=== PATIENT | male | born 1965 | race African-American/Black ===

== ENCOUNTER 2016-04-03 04:45 | Emergency (ER) | payer OTHER ==
[~2016-04-03] VITALS: Ht 175.3 cm; Wt 75.0 kg
[~2016-04-03 04:45] MED LIST: ALBU0.08 NEB; HYDR10TA23 PO; IPRA0.02 NEB; LEVA750T PO; PRED10 PO; VENTAER INH
[2016-04-03 04:53] VITALS: BP 136/85; PULSE 98; RESP 28; TEMP 98.7; O2SAT 93
[2016-04-03 04:55] VITALS: O2SAT 93
[2016-04-03 04:59] VITALS: BP 147/84; PULSE 100; RESP 26; O2SAT 93
[2016-04-03] MEDS ORDERED: methylPREDNISolone SOD SUCC 125 MG/2 ML VIAL IVP ONE (05:00)
[2016-04-03] MEDS ORDERED: SODIUM CHLORIDE 0.9% FLUSH 5 ML FLUSH IVF PRN (05:00)
[2016-04-03] MEDS: RESP: ALBUTEROL 2.5 MG/IPRATROPIUM 0.5 MG NEB (SCH) INH (05:03)
--- NOTE | 2016-04-03 05:05 | PD ---
HPI Chief Complaint: Respiratory Symptoms Time Seen by Provider: 04:47 Travel History International Travel<30 days: No Contact w/Intl Traveler<30days: No Traveled to known affect area: No History of Present Illness HPI The patient is a 50 year old male who presents to the [facility] emergency department with a history of shortness of breath that began yesterday. The patient reports that the shortness of breath became worse today and he unfortunately ran out of his inhaler yesterday. He is currently residing at the [facility] for rehabilitation. The patient reports that he put in a request for his inhaler to be refilled yesterday and was told that it may be available for him today. The patient had onset of wheezing prior to arrival, therefore ambulance services were called. The patient reports that over the last hour he's had a cough productive intermittently of brown sputum. The patient reports that he continues to smoke, however he has decreased his cigarette use down to 8 per day. He denies having any known fevers. The patient reports having chest tightness associated with this. He denies having any chest pain or pressure. The patient denies having any recent neck pain, abdominal pain, vomiting, diarrhea, urinary symptoms, or neurologic symptoms. PFSH Past Medical History Narrative Medical The patient's past medical history is significant for COPD, hypertension, hyperlipidemia, anxiety disorder, prior history of polysubstance abuse. Asthma: Yes Autoimmune Disease: No Blood Disorders: No Anxiety: Yes Heart Rhythm Problems: No Cancer: No Cardiac Catheterization: Yes Cardiovascular Problems: Yes High Cholesterol: Yes Chest Pain: No Congestive Heart Failure: No COPD: Yes Diabetes: No Diminished Hearing: No Endocrine: No Gastrointestinal Disorders: Yes Genitourinary: No Hypertension: No Immune Disorder: No Implanted Vascular Access Dvce: No Musculoskeletal: No Neurologic: No Psychiatric: No Reproductive: No Respiratory: Yes (asthma, copd) Immunizations Current: Yes Myocardial Infarction: Yes Sleep Apnea: Yes Thyroid Disease: No Influenza Vaccination: No PNEUMOCCOCAL Vaccine (Year): 1 Past Surgical History Narrative Surgical The patient's past surgical history is significant for cardiac catheterization with stent placement previously. AICD: No Arteriovenous Shunt: No Coronary Stent: Yes Insulin Pump: No Joint Replacement: No Pacemaker: No Other Surgery: No Social History Alcohol Use: Yes (OCCASIONALLY) Tobacco Use: Yes (8 cigarettes per day) Substance Use: No (he is currently in a rehabilitation program/ smoked drugs) Allergies-Medications (Allergen,Severity, Reaction): Coded Allergies: *MDRO Multi-Drug Resistant Organism (Verified Adverse Reaction, Unknown, Cleared, 04/03/16) MRSA (bronch wash) - 09/2011 MRSA PCR Screen negative 12/02/14 and 12/06/14. Cleared per Infection Control. Reported Meds & Prescriptions Reported Meds & Active Scripts Active Hydralazine (Hydralazine HCl) 10 Mg Tab 10 Mg PO Q6H PRN Prednisone 10 Mg Tab 10 Mg PO DAILY Take 5 pills (50mg) daily for 5 days, then 4 pills (40mg) daily for 5 days, then 3 pills (30mg) daily for 5 days, then 2 pills (20mg) daily for 5 days, then 1 pill (10mg) daily for 5 days. Levaquin (Levofloxacin) 750 Mg Tab 750 Mg PO DAILY Albuterol Neb (Albuterol Sulfate) 2.5 Mg/3 Ml Neb 2.5 Mg NEB Q4-6H While awake Ventolin Hfa 18 GM Inh (Albuterol Sulfate) 90 Mcg/Act Aer 2 Puff INH Q4-6H Ipratropium Neb (Ipratropium Berthold) 0.5 Mg/2.5 Ml Amp 0.5 Mg NEB Q4-6H Albuterol Neb (Albuterol Sulfate) 2.5 Mg/3 Ml Neb 2.5 Mg NEB Q4-6H While awake Ventolin Hfa 18 GM Inh (Albuterol Sulfate) 90 Mcg/Act Aer 2 Puff INH Q4-6H PRN Review of Systems Except as stated in HPI: all other systems reviewed are Neg General / Constitutional: No: Fever Eyes: No: Visual changes HENT: No: Headaches Cardiovascular: Positive: Chest Pain or Discomfort (chest tightness) Respiratory: Positive: Cough, Shortness of Breath Gastrointestinal: No: Abdominal Pain Genitourinary: No: Dysuria Musculoskeletal: No: Pain Skin: No Rash Neurologic: No: Weakness Psychiatric: No: Depression Endocrine: No: Polydipsia Hematologic/Lymphatic: No: Easy Bruising Physical Exam Narrative General: The patient is a well-developed well-nourished male, with conversational dyspnea noted. The patient has a frequent dry sounding cough on examination. Head and Neck exam: Head is normocephalic atraumatic. Eyes: Pupils are equal round and reactive to light. Nose: Midline septum with pink mucous membranes Mouth: Dentition unremarkable. Moist mucus membranes. Posterior oropharynx is not erythematous. No tonsillar hypertrophy. Uvula midline. Airway patent. Neck: No palpable lymphadenopathy. No nuchal rigidity. No thyromegaly. Cardiovascular: Sinus tachycardia in the low 100s without murmurs, gallops, or rubs. No pulse deficit to the extremities. Lungs: Inspiratory and expiratory wheezes are audible in bilateral lung gutierrez. The patient has no accessory muscle use noted. The patient is not tripoding. The patient is not diaphoretic. No paroxysmal abdominal breathing. Abdomen: Soft, without tenderness to palpation in all 4 quadrants of the abdomen. No guarding, rebound, or rigidity. Normal bowel sounds are audible. Extremities: No clubbing, cyanosis, or edema. 2+ pulses in all 4 extremities. No calf tenderness on palpation. Back: No costovertebral angle tenderness to palpation. Neurologic Exam: Grossly nonfocal. Skin Exam: No rash noted. Intact skin that is warm and dry. Data Data Last Documented VS Vital Signs Date Time Temp Pulse Resp B/P Pulse Ox O2 Delivery O2 Flow Rate FiO2 04/03/16 04:59 100 26 147/84 93 Aerosol Mask 6 04/03/16 04:53 98.7 Orders Complete Blood Count With Diff (04/03/16 04:47) Basic Metabolic Panel (Bmp) (04/03/16 04:47) Iv Access Insert/Monitor (04/03/16 04:47) Electrocardiogram (04/03/16 04:47) Ecg Monitoring (04/03/16 04:47) Oximetry (04/03/16 04:47) Oxygen Administration (04/03/16 04:47) Chest, Single Ap (04/03/16 04:47) Sodium Chloride 0.9% Flush (Ns Flush) (04/03/16 05:00) Methylprednisolone So Succ Inj (Solumedr (04/03/16 05:00) Albuterol-Ipratropium Neb (Duoneb Neb) (04/03/16 05:00) Albuterol Hfa Inh (Proair Hfa Inh) (04/03/16 05:30) Labs Laboratory Tests Test 04/03/16 05:00 White Blood Count 5.9 TH/MM3 Red Blood Count 4.70 MIL/MM3 Hemoglobin 14.3 GM/DL Hematocrit 42.3 % Mean Corpuscular Volume 90.0 FL Mean Corpuscular Hemoglobin 30.5 PG Mean Corpuscular Hemoglobin 33.9 % Concent Red Cell Distribution Width 14.1 % Platelet Count 238 TH/MM3 Mean Platelet Volume 7.8 FL Neutrophils (%) (Auto) 54.4 % Lymphocytes (%) (Auto) 33.5 % Monocytes (%) (Auto) 7.6 % Eosinophils (%) (Auto) 3.4 % Basophils (%) (Auto) 1.1 % Neutrophils # (Auto) 3.2 TH/MM3 Lymphocytes # (Auto) 2.0 TH/MM3 Monocytes # (Auto) 0.4 TH/MM3 Eosinophils # (Auto) 0.2 TH/MM3 Basophils # (Auto) 0.1 TH/MM3 CBC Comment DIFF FINAL Differential Comment Sodium Level 142 MEQ/L Potassium Level 3.9 MEQ/L Chloride Level 112 MEQ/L Carbon Dioxide Level 22.7 MEQ/L Anion Gap 7 MEQ/L Blood Urea Nitrogen 11 MG/DL Creatinine 0.99 MG/DL Estimat Glomerular Filtration 97 ML/MIN Rate Random Glucose 93 MG/DL Calcium Level 8.9 MG/DL MDM Medical Decision Making Medical Screen Exam Complete: Yes Emergency Medical Condition: Yes Medical Record Reviewed: Yes Differential Diagnosis COPD exacerbation, versus bronchitis, versus pneumonia Narrative Course During the course of the patients emergency department visit, the patients history, examination, and differential diagnosis were reviewed with the patient. The patient had IV access obtained and blood work sent for analysis. The patient was placed on a warehouse operations associate with oximetry and blood pressure monitoring. An EKG was done on arrival. The patient's EKG shows a sinus tachycardia rate of 107, no acute ST segment changes are noted. The patient was provided DuoNeb 2, Solu-Medrol 125 mg IV. The patients laboratory studies were reviewed and remarkable for a CBC that is unremarkable. Basic metabolic profile is remarkable for chloride of 112. Radiology studies were reviewed and remarkable for a chest x-ray that shows no acute abnormality. The patient on reexamination is feeling improved. The patient was given 2 puffs of the pro-air inhaler. The inhaler was then dispensed to him for use at his rehabilitation facility. The patient will be discharged home with a prescription for Medrol Dosepak taper and doxycycline. The patient is resting comfortably and feels better, is alert and in no distress. The patients results and examination findings were discussed with the patient. The repeat examination is unremarkable and benign. The history, exam, diagnostic testing, and current condition do not suggest any significant pathology to warrant further testing, continued ED treatment, admission, or surgical evaluation at this point. The vital signs have been stable. The patient does not have uncontrollable pain, intractable vomiting, or other significant symptoms. The patient's condition is stable and appropriate for discharge. The patient will pursue further outpatient evaluation with a primary care physician or other designated or consulting physician as indicated in the discharge instructions. The patient expressed understanding and was agreeable with this plan. Diagnosis Primary Impression: COPD exacerbation Additional Impression: Acute bronchitis Qualified Code: J20.9 - Acute bronchitis, unspecified organism Referrals: Primary Care Physician 3 days Patient Instructions: Acute Bronchitis (ED), COPD (Chronic Obstructive Pulmonary Disease) (ED), General Instructions Med/Other Pt SpecificInfo: Prescription(s) given Scripts Methylprednisolone Dosepak (Medrol Dosepak)4 Mg Dspk4 Mg PO DIRECTED #1 DSPK Ref 0 Per Pharmacist direction Prov:Lali Jensen MD 04/03/16 Doxycycline Hyclate 100 Mg Qos696 Mg PO BID #20 CAP Ref 0 Prov:Lali Jensen MD 04/03/16 Albuterol 18 GM Inh (Ventolin Hfa 18 GM Inh)90 Mcg/Act Aer2 Puff INH Q4-6H #1 INHALER Ref 11 Prov:Lali Jensen MD 04/03/16 Disposition: 01 DISCHARGE HOME Condition: Stable Lali Jensen MD Apr 03, 2016 05:05
[2016-04-03 05:10] LABS: AUTOMATED NEUTROPHIL # 3.2 TH/MM3 (1.8-7.7); BASOPHIL # 0.1 TH/MM3 (0-0.2); BASOPHIL % 1.1 % (0.0-2.0); EOSINOPHIL # 0.2 TH/MM3 (0-0.4); EOSINOPHIL % 3.4 % (0.0-4.0); HEMATOCRIT 42.3 % (39.0-51.0); LYMPH % 33.5 % (9.0-44.0); MEAN CORPUSCULAR HEMOGLOBIN 30.5 PG (27.0-34.0); MEAN CORPUSCULAR HGB CONC 33.9 % (32.0-36.0); MONO % 7.6 % (0.0-8.0); NEUT % 54.4 % (16.0-70.0); PLATELET COUNT 238 TH/MM3 (150-450); RED CELL DISTRIBUTION WIDTH 14.1 % (11.6-17.2); WHITE BLOOD COUNT 5.9 TH/MM3 (4.0-11.0)
[2016-04-03 05:22] LABS: HEMO FLAGS DIFF FINAL
[2016-04-03 05:25] LABS: BICARBONATE 22.7 MEQ/L (21.0-32.0); POTASSIUM 3.9 MEQ/L (3.5-5.1)
[2016-04-03] MEDS ORDERED: ALBUTEROL SULFATE 90 MCG/ACT HFA 8 GM INHALER INH ONE (05:30)
--- NOTE | 2016-04-03 06:12 | RADRPT ---
EXAM DATE/TIME: 04/03/2016 05:34 [facility] COMPARISON: No previous studies available for comparison. INDICATIONS : Shortness of breath. MEDICAL HISTORY : Hypertension. Chronic obstructive pulmonary disease. Asthma. SURGICAL HISTORY : None. ENCOUNTER: Initial ACUITY: 1 day PAIN SCORE: 0/10 LOCATION: Bilateral chest FINDINGS: A single view of the chest demonstrates the lungs to be symmetrically aerated without evidence of mas s, infiltrate or effusion. The cardiomediastinal contours are unremarkable. Osseous structures are intact. CONCLUSION: No evidence of acute cardiopulmonary disease. Miguel Mart MD on April 03, 2016 at 6:09 Board Certified Radiologist. This report was verified electronically.
[2016-04-03] MEDS ORDERED: VENTAER INH (06:17)
[2016-04-03] MEDS ORDERED: DOXY100C PO (06:17)
[2016-04-03] MEDS ORDERED: MEDR4PAK PO (06:17)
--- NOTE | 2016-04-03 16:02 | EKG ---
Date Performed: 04/03/2016 Time Performed: 05:01:11 PTAGE: 50 years EKG: SINUS TACHYCARDIA POSSIBLE RIGHT VENTRICULAR CONDUCTION DELAY Compared to prior tracing no significant change ABNORMAL RHYTHM ECG NO PREVIOUS TRACING DOCTOR: Ashwini Feng Interpretating Date/Time 04/03/2016 15:58:19
== END 2016-04-03 06:54 | disposition home or self-care (01) ==
LOC: NEPC 04:45
DX: J44.1 Chronic obstructive pulmonary disease with (acute) exacerbation (principal); J44.0 Chronic obstructive pulmonary disease with (acute) lower respiratory infection; J20.9 Acute bronchitis, unspecified; J45.909 Unspecified asthma, uncomplicated; F17.210 Nicotine dependence, cigarettes, uncomplicated
CPT/HCPCS: 71010; 80048; 85025; 93005; 94640; 94664; 96374; 99284; J2930

== ENCOUNTER 2016-04-09 05:31 | Emergency (ER) | payer OTHER ==
[~2016-04-09 05:31] MED LIST changes: +DOXY100C PO; +MEDR4PAK PO
[2016-04-09 05:34] VITALS: BP 128/80; PULSE 99; RESP 18; TEMP 97.6; O2SAT 98
[2016-04-09] MEDS ORDERED: AZITHROMYCIN INJ 500 MG in SODIUM CHLOR 0.9% 250 ML INJ 250 ML IV ONE (06:15)
[2016-04-09] MEDS ORDERED: cefTRIAXone INJ 1,000 MG in SODIUM CHLORIDE 0.9% INJ 100 ML IV ONE (06:15)
[2016-04-09] MEDS: RESP: ALBUTEROL 2.5 MG/IPRATROPIUM 0.5 MG NEB (SCH) INH (06:23)
[2016-04-09 06:44] VITALS: BP 110/68; PULSE 97; RESP 20; O2SAT 98
--- NOTE | 2016-04-09 06:58 | PD ---
HPI Chief Complaint: Respiratory Symptoms Time Seen by Provider: 05:56 Travel History International Travel<30 days: No Contact w/Intl Traveler<30days: No Traveled to known affect area: No History of Present Illness HPI The patient is a 50 year old male who presents to the [facility] emergency department with a history of shortness of breath that began again this evening prior to arrival. The patient is currently a resident at the [facility] for rehabilitation. The patient experienced a COPD exacerbation and was seen in the emergency department by me on April 03, 2016. He was given prescriptions for his inhaler that he was out of at that time as well as nebulizer solution and antibiotic. He reports that he gave the prescriptions to the [facility] and the turn amended the pharmacy, however the prescriptions were not picked up for him. He reports that he awoke from sound sleep with wheezing and coughing. He reports that his cough is been less productive been previously. The patient was brought in by ambulance services. The patient had IV access obtained prior to arrival was given Solu-Medrol 125 mg IV, albuterol nebulizer treatments 3. The patient on arrival to this facility reports feeling somewhat improved although still slightly wheezy. The patient's O2 saturation on room air is noted to be 96-98%. The patient denies any recent fevers, neck pain, chest pain, abdominal pain, vomiting, diarrhea, urinary symptoms, or neurologic symptoms. PFSH Past Medical History Narrative Medical The patient's past medical history is significant for COPD, hypertension, hyperlipidemia, anxiety disorder, history of prior polysubstance abuse, currently in rehabilitation. Asthma: Yes Autoimmune Disease: No Blood Disorders: No Anxiety: Yes Heart Rhythm Problems: No Cancer: No Cardiac Catheterization: Yes Cardiovascular Problems: Yes High Cholesterol: Yes Chest Pain: No Congestive Heart Failure: No COPD: Yes Diabetes: No Diminished Hearing: No Endocrine: No Gastrointestinal Disorders: Yes Genitourinary: No Hypertension: No Immune Disorder: No Implanted Vascular Access Dvce: No Musculoskeletal: No Neurologic: No Psychiatric: No Reproductive: No Respiratory: Yes (asthma, copd) Immunizations Current: Yes Myocardial Infarction: Yes Sleep Apnea: Yes Thyroid Disease: No PNEUMOCCOCAL Vaccine (Year): 1 Past Surgical History Narrative Surgical The patient's past surgical history is significant for cardiac catheterization with stent placement. AICD: No Arteriovenous Shunt: No Coronary Stent: Yes Insulin Pump: No Joint Replacement: No Pacemaker: No Other Surgery: No Social History Alcohol Use: Yes (OCCASIONALLY) Tobacco Use: Yes (8 cigarettes per day) Substance Use: No (he is currently in a rehabilitation program/ smoked drugs) Allergies-Medications (Allergen,Severity, Reaction): Coded Allergies: *MDRO Multi-Drug Resistant Organism (Verified Adverse Reaction, Unknown, Cleared, 04/03/16) MRSA (bronch wash) - 09/2011 MRSA PCR Screen negative 12/02/14 and 12/06/14. Cleared per Infection Control. Reported Meds & Prescriptions Reported Meds & Active Scripts Active Medrol Dosepak (Methylprednisolone) 4 Mg Dspk 4 Mg PO DIRECTED Per Pharmacist direction Doxycycline Hyclate 100 Mg Cap 100 Mg PO BID Hydralazine (Hydralazine HCl) 10 Mg Tab 10 Mg PO Q6H PRN Prednisone 10 Mg Tab 10 Mg PO DAILY Take 5 pills (50mg) daily for 5 days, then 4 pills (40mg) daily for 5 days, then 3 pills (30mg) daily for 5 days, then 2 pills (20mg) daily for 5 days, then 1 pill (10mg) daily for 5 days. Levaquin (Levofloxacin) 750 Mg Tab 750 Mg PO DAILY Albuterol Neb (Albuterol Sulfate) 2.5 Mg/3 Ml Neb 2.5 Mg NEB Q4-6H While awake Ipratropium Neb (Ipratropium Eldred) 0.5 Mg/2.5 Ml Amp 0.5 Mg NEB Q4-6H Albuterol Neb (Albuterol Sulfate) 2.5 Mg/3 Ml Neb 2.5 Mg NEB Q4-6H While awake Ventolin Hfa 18 GM Inh (Albuterol Sulfate) 90 Mcg/Act Aer 2 Puff INH Q4-6H PRN Review of Systems Except as stated in HPI: all other systems reviewed are Neg General / Constitutional: No: Fever Eyes: No: Visual changes HENT: Positive: Congestion, No: Headaches Cardiovascular: No: Chest Pain or Discomfort Respiratory: Positive: Cough, Shortness of Breath, Wheezing Gastrointestinal: No: Abdominal Pain Genitourinary: No: Dysuria Musculoskeletal: No: Pain Skin: No Rash Neurologic: No: Weakness Psychiatric: No: Depression Endocrine: No: Polydipsia Hematologic/Lymphatic: No: Easy Bruising Physical Exam Narrative General: The patient is a well-developed well-nourished male in no acute distress. Head and Neck exam: Head is normocephalic atraumatic. Eyes: Pupils are equal round and reactive to light. Nose: Midline septum with pink mucous membranes Mouth: Dentition unremarkable. Moist mucus membranes. Posterior oropharynx is not erythematous. No tonsillar hypertrophy. Uvula midline. Airway patent. Neck: No palpable lymphadenopathy. No nuchal rigidity. No thyromegaly. Cardiovascular: No pulse deficit to the extremities. Lungs: Soft expiratory wheezes are audible throughout bilateral lung gutierrez, no rhonchi , no crackles. No conversational dyspnea. No accessory muscle use. Abdomen: Soft, without tenderness to palpation in all 4 quadrants of the abdomen. No guarding, rebound, or rigidity. Normal bowel sounds are audible. Extremities: No clubbing, cyanosis, or edema. 2+ pulses in all 4 extremities. No calf tenderness on palpation. Back: No spinous process tenderness to palpation. No costovertebral angle tenderness to palpation. Neurologic Exam: Grossly nonfocal. Skin Exam: No rash noted. Intact skin that is warm and dry. Data Data Last Documented VS Vital Signs Date Time Temp Pulse Resp B/P Pulse Ox O2 Delivery O2 Flow Rate FiO2 04/09/16 06:44 97 20 110/68 98 Nasal Cannula 2 04/09/16 05:34 97.6 Orders Albuterol-Ipratropium Neb (Duoneb Neb) (04/09/16 06:00) Ceftriaxone Inj (Rocephin Inj) (04/09/16 06:15) Azithromycin Inj (Zithromax Inj) (04/09/16 06:15) MDM Medical Decision Making Medical Screen Exam Complete: Yes Emergency Medical Condition: Yes Medical Record Reviewed: Yes Differential Diagnosis COPD exacerbation related to medication noncompliance, versus COPD exacerbation related to bronchitis, versus COPD exacerbation related to allergy exacerbation Narrative Course During the course of the patients emergency department visit, the patients history, examination, and differential diagnosis were reviewed with the patient. The patient had IV access obtained prior to arrival. The patient was given Rocephin 1 g IV, Zithromax 500 IV. The patient was provided DuoNeb nebs 3. The patients laboratory studies and imaging studies were not repeated at this time as they were recently done in his symptoms are similar. Workup was unremarkable on last evaluation. He did have an EKG done during his evaluation today which shows a sinus tachycardia with a rate of 100, no acute ST segment elevation or depression. The patient will be discharged back to the rehabilitation facility. The patient was encouraged to have his prescriptions picked up from the pharmacy that were previously provided by me. The patient is resting comfortably and feels better, is alert and in no distress. The patients examination findings were discussed with him. The repeat examination is unremarkable and benign. The history, exam, diagnostic testing, and current condition do not suggest any significant pathology to warrant further testing, continued ED treatment, admission, or surgical evaluation at this point. The vital signs have been stable. The patient does not have uncontrollable pain, intractable vomiting, or other significant symptoms. The patient's condition is stable and appropriate for discharge. The patient will pursue further outpatient evaluation with a primary care physician or other designated or consulting physician as indicated in the discharge instructions. The patient expressed understanding and was agreeable with this plan. Diagnosis Primary Impression: COPD exacerbation Additional Impression: Acute bronchitis Qualified Code: J20.9 - Acute bronchitis, unspecified organism Referrals: Primary Care Physician 2 days Patient Instructions: Acute Bronchitis (ED), COPD (Chronic Obstructive Pulmonary Disease) (ED), General Instructions Additional Instructions: Please shipping room supervisor the prescriptions that were previously provided during her last emergency department visit from the pharmacy. Disposition: 01 DISCHARGE HOME Condition: Stable Lali Jensen MD Apr 09, 2016 06:58
[2016-04-09 07:47] VITALS: BP 118/76; TEMP 97.8
--- NOTE | 2016-04-09 17:19 | EKG ---
Date Performed: 04/09/2016 Time Performed: 05:38:50 PTAGE: 50 years EKG: SINUS TACHYCARDIA Since previous tracing, no significant change noted ABNORMAL RHYTHM ECG PREVIOUS TRACING : 04/03/2016 05..11 DOCTOR: Mick Deng Interpretating Date/Time 04/09/2016 17:18:37
== END 2016-04-09 07:47 | disposition home or self-care (01) ==
LOC: NEPC 05:31
DX: J44.1 Chronic obstructive pulmonary disease with (acute) exacerbation (principal); J20.9 Acute bronchitis, unspecified; R00.0 Tachycardia, unspecified; I10 Essential (primary) hypertension; E78.5 Hyperlipidemia, unspecified; J45.909 Unspecified asthma, uncomplicated; E78.00 Pure hypercholesterolemia, unspecified; I25.2 Old myocardial infarction; G47.30 Sleep apnea, unspecified; F17.210 Nicotine dependence, cigarettes, uncomplicated
CPT/HCPCS: 93005; 94640; 94664; 96365; 96367; 99283; J0456; J0696; J7050

== ENCOUNTER 2016-04-14 22:56 | Inpatient (IN) | payer OTHER ==
[2016-04-14 22:58] VITALS: BP 194/96; PULSE 147; RESP 40; TEMP 97.4; O2SAT 89
[2016-04-14] MEDS ORDERED: methylPREDNISolone SOD SUCC 125 MG/2 ML VIAL ONE (23:05)
[2016-04-14 23:10] VITALS: O2SAT 94
[2016-04-14] MEDS ORDERED: SODIUM CHLORIDE 0.9% FLUSH 5 ML FLUSH IVF PRN (23:15)
[2016-04-14] MEDS ORDERED: MAGNESIUM SULFATE 1 GM PREMIX 100 ML IV ONE (23:15)
[2016-04-14] MEDS ORDERED: methylPREDNISolone SOD SUCC 125 MG/2 ML VIAL IV PUSH ONE (23:15)
[2016-04-14] MEDS ORDERED: LORazepam 2 MG/ML VIAL IV PUSH ONE (23:15)
[2016-04-14] MEDS: RESP: ALBUTEROL 2.5 MG/IPRATROPIUM 0.5 MG NEB (SCH) INH (23:32)
--- NOTE | 2016-04-14 23:38 | PD ---
HPI Chief Complaint: Respiratory Distress Time Seen by Provider: 23:01 Travel History International Travel<30 days: No Contact w/Intl Traveler<30days: No Traveled to known affect area: No History of Present Illness HPI The patient is a 51 year old male who presents to the [facility] emergency department with a history of shortness of breath that suddenly began this evening. The patient is unable to provide any significant history on arrival as he is dyspneic and tripoding in obvious respiratory distress on an albuterol nebulizer treatment. According to ambulance services the patient was saturating 88% on room air. The patient was at the [facility] when they picked him up. The patient reports having wheezing, cough productive of white and occasionally brown sputum, and tightness in the center of his chest. The patient en route to this facility was started on albuterol nebulizer treatments and was saturating 94% prior to arrival. On arrival, the patient continues to be on a nebulizer treatment and is saturating 91%. The patient has a history of requiring intubation in the past. The patient denies any history of fever, cough, congestion, neck pain, chest pain, shortness of breath, abdominal pain, vomiting, diarrhea, urinary symptoms, or neurologic symptoms. PFSH Past Medical History Narrative Medical The patient's past medical history is significant for COPD, hypertension, hyperlipidemia, anxiety disorder, prior history of polysubstance abuse, currently in rehabilitation, history of coronary artery disease Asthma: Yes Autoimmune Disease: No Blood Disorders: No Anxiety: Yes Heart Rhythm Problems: No Cancer: No Cardiac Catheterization: Yes Cardiovascular Problems: Yes High Cholesterol: Yes Chest Pain: No Congestive Heart Failure: No COPD: Yes Diabetes: No Diminished Hearing: No Endocrine: No Gastrointestinal Disorders: Yes Genitourinary: No Hypertension: No Immune Disorder: No Implanted Vascular Access Dvce: No Musculoskeletal: No Neurologic: No Psychiatric: No Reproductive: No Respiratory: Yes (COPD) Immunizations Current: Yes Myocardial Infarction: Yes Sleep Apnea: Yes Thyroid Disease: No PNEUMOCCOCAL Vaccine (Year): 1 Past Surgical History Narrative Surgical The patient's past surgical history is significant for cardiac catheterization with stent placement. AICD: No Arteriovenous Shunt: No Coronary Stent: Yes Insulin Pump: No Joint Replacement: No Pacemaker: No Other Surgery: No Social History Alcohol Use: Yes (OCCASIONALLY) Tobacco Use: Yes (8 cigarettes per day) Substance Use: No (he is currently in a rehabilitation program/ smoked drugs) Allergies-Medications (Allergen,Severity, Reaction): Coded Allergies: *MDRO Multi-Drug Resistant Organism (Verified Adverse Reaction, Unknown, Cleared, 04/14/16) MRSA (bronch wash) - 09/2011 MRSA PCR Screen negative 12/02/14 and 12/06/14. Cleared per Infection Control. Reported Meds & Prescriptions Reported Meds & Active Scripts Active Medrol Dosepak (Methylprednisolone) 4 Mg Dspk 4 Mg PO DIRECTED Per Pharmacist direction Doxycycline Hyclate 100 Mg Cap 100 Mg PO BID Hydralazine (Hydralazine HCl) 10 Mg Tab 10 Mg PO Q6H PRN Prednisone 10 Mg Tab 10 Mg PO DAILY Take 5 pills (50mg) daily for 5 days, then 4 pills (40mg) daily for 5 days, then 3 pills (30mg) daily for 5 days, then 2 pills (20mg) daily for 5 days, then 1 pill (10mg) daily for 5 days. Levaquin (Levofloxacin) 750 Mg Tab 750 Mg PO DAILY Albuterol Neb (Albuterol Sulfate) 2.5 Mg/3 Ml Neb 2.5 Mg NEB Q4-6H While awake Ipratropium Neb (Ipratropium [place]) 0.5 Mg/2.5 Ml Amp 0.5 Mg NEB Q4-6H Albuterol Neb (Albuterol Sulfate) 2.5 Mg/3 Ml Neb 2.5 Mg NEB Q4-6H While awake Ventolin Hfa 18 GM Inh (Albuterol Sulfate) 90 Mcg/Act Aer 2 Puff INH Q4-6H PRN Review of Systems Except as stated in HPI: all other systems reviewed are Neg General / Constitutional: No: Fever Eyes: No: Visual changes HENT: No: Headaches Cardiovascular: Positive: Chest Pain or Discomfort (chest tightness), Diaphoresis, Dyspnea on exertion Respiratory: Positive: Cough Gastrointestinal: No: Abdominal Pain Genitourinary: No: Dysuria Musculoskeletal: No: Pain Skin: No Rash Neurologic: No: Weakness Psychiatric: No: Depression Endocrine: No: Polydipsia Hematologic/Lymphatic: No: Easy Bruising Physical Exam Narrative General: The patient is well-developed well-nourished male, in respiratory distress on arrival with tripoding, accessory muscle use, diaphoresis. Head and Neck exam: Head is normocephalic atraumatic. Eyes: Pupils are equal round and reactive to light. Nose: Midline septum with pink mucous membranes Mouth: Dentition unremarkable. Moist mucus membranes. Posterior oropharynx is not erythematous. No tonsillar hypertrophy. Uvula midline. Airway patent. Neck: No palpable lymphadenopathy. No nuchal rigidity. No thyromegaly. Cardiovascular: Sinus tachycardia in the 140s without murmurs, gallops, or rubs. No pulse deficit to the extremities and simultaneous auscultation and palpation of his radial artery. Lungs: The patient has poor air movement bilaterally with expiratory wheezes audible bilaterally with a prolonged expiratory phase of breathing. The patient has accessory muscle use, tripoding, conversational dyspnea noted. Abdomen: Soft, without tenderness to palpation in all 4 quadrants of the abdomen. No guarding, rebound, or rigidity. Normal bowel sounds are audible. Extremities: No clubbing, cyanosis, or edema. 2+ pulses in all 4 extremities. No calf tenderness on palpation. Back: No spinous process tenderness to palpation. No costovertebral angle tenderness to palpation. Neurologic Exam: Grossly nonfocal. Skin Exam: No rash noted. Intact skin that is cool and diaphoretic. Data Data Last Documented VS Vital Signs Date Time Temp Pulse Resp B/P Pulse Ox O2 Delivery O2 Flow Rate FiO2 04/15/16 01:00 115 28 144/84 97 BiPAP 04/14/16 23:50 30 04/14/16 23:06 4 04/14/16 22:58 97.4 Orders Iv Access Insert/Monitor (04/14/16 23:01) Ecg Monitoring (04/14/16 23:01) Oximetry (04/14/16 23:01) Oxygen Administration (04/14/16 23:01) Sodium Chloride 0.9% Flush (Ns Flush) (04/14/16 23:15) Albuterol-Ipratropium Neb (Duoneb Neb) (04/14/16 23:15) Electrocardiogram (04/14/16 23:01) Chest, Single Ap (04/14/16 23:01) Methylprednisolone So Succ Inj (Solumedr (04/14/16 23:05) Complete Blood Count With Diff (04/14/16 23:08) Comprehensive Metabolic Panel (04/14/16 23:08) Creatine Kinase (Cpk) (04/14/16 23:08) Ckmb (Isoenzyme) Profile (04/14/16 23:08) Troponin I (04/14/16 23:08) B-Type Natriuretic Peptide (04/14/16 23:08) Prothrombin Time / Inr (Pt) (04/14/16 23:08) Act Partial Throm Time (Ptt) (04/14/16 23:08) Arterial Blood Gas (Abg) (04/14/16 23:08) Urinalysis - C+S If Indicated (04/14/16 23:08) Drug Screen, Random Urine (04/14/16 23:08) Resp Bipap / Cpap Non Invas Vt (04/14/16 ) Methylprednisolone So Succ Inj (Solumedr (04/14/16 23:15) Magnesium Sulfate 1 Gm Premix (Magnesium (04/14/16 23:15) Lorazepam Inj (Ativan Inj) (04/14/16 23:15) Magnesium (Mg) (04/14/16 23:00) CKMB (04/14/16 23:00) CKMB% (04/14/16 23:00) Admit Order (Ed Use Only) (04/15/16 00:58) Labs Laboratory Tests Test 04/14/16 04/14/16 23:00 23:37 Prothrombin Time 10.5 SEC Prothromb Time International 1.0 RATIO Ratio Activated Partial 29.2 SEC Thromboplast Time White Blood Count 9.9 TH/MM3 Red Blood Count 4.79 MIL/MM3 Hemoglobin 14.9 GM/DL Hematocrit 43.1 % Mean Corpuscular Volume 90.0 FL Mean Corpuscular Hemoglobin 31.1 PG Mean Corpuscular Hemoglobin 34.6 % Concent Red Cell Distribution Width 13.9 % Platelet Count 245 TH/MM3 Mean Platelet Volume 8.1 FL Neutrophils (%) (Auto) 59.5 % Lymphocytes (%) (Auto) 29.4 % Monocytes (%) (Auto) 6.9 % Eosinophils (%) (Auto) 3.7 % Basophils (%) (Auto) 0.5 % Neutrophils # (Auto) 5.9 TH/MM3 Lymphocytes # (Auto) 2.9 TH/MM3 Monocytes # (Auto) 0.7 TH/MM3 Eosinophils # (Auto) 0.4 TH/MM3 Basophils # (Auto) 0.1 TH/MM3 CBC Comment DIFF FINAL Differential Comment Sodium Level 139 MEQ/L Potassium Level 3.8 MEQ/L Chloride Level 105 MEQ/L Carbon Dioxide Level 21.7 MEQ/L Anion Gap 12 MEQ/L Blood Urea Nitrogen 20 MG/DL Creatinine 1.27 MG/DL Estimat Glomerular Filtration 72 ML/MIN Rate Random Glucose 132 MG/DL Calcium Level 8.7 MG/DL Magnesium Level 1.8 MG/DL Total Bilirubin 0.6 MG/DL Aspartate Amino Transf 20 U/L (AST/SGOT) Alanine Aminotransferase 23 U/L (ALT/SGPT) Alkaline Phosphatase 62 U/L Total Creatine Kinase 115 U/L Creatine Kinase MB LESS THAN 0.5 NG/ML Troponin I LESS THAN 0.02 NG/ML B-Type Natriuretic Peptide LESS THAN 2 PG/ML Total Protein 7.5 GM/DL Albumin 3.8 GM/DL Blood Gas Puncture Site RT RADIAL Blood Gas Patient Temperature 98.6 Blood Gas HCO3 21 mmol/L Blood Gas Base Excess -3.8 mmol/L Blood Gas Oxygen Saturation 95 % Arterial Blood pH 7.33 Arterial Blood Partial 41 mmHg Pressure CO2 Arterial Blood Partial 222 mmHG Pressure O2 Arterial Blood Oxygen Content 20.5 Vol % Arterial Blood 2.0 % Carboxyhemoglobin Arterial Blood Methemoglobin 1.8 % Blood Gas Hemoglobin 14.9 G/DL Oxygen Delivery Device BiPAP Blood Gas Ventilator Setting IPAP15/EPAP5 Blood Gas Inspired Oxygen 60 % MDM Medical Decision Making Medical Screen Exam Complete: Yes Emergency Medical Condition: Yes Medical Record Reviewed: Yes Differential Diagnosis COPD exacerbation, versus acute coronary syndrome, versus pneumothorax, versus pneumonia Narrative Course During the course of the patients emergency department visit, the patients history, examination, and differential diagnosis were reviewed with the patient. The patient had IV access obtained and blood work sent for analysis. The patient was placed on a cardiac cath tech with oximetry and blood pressure monitoring. An EKG was done on arrival. The patient's EKG shows a sinus tachycardia, incomplete right bundle branch block, heart rate [address] and T-wave abnormalities The patient was provided DuoNeb nebs 3. The patient did not receive Solu- Medrol prior to arrival, therefore Solu-Medrol 125 mg IV was given 1. The patient was placed on BiPAP which will be weaned as tolerated to maintain his O2 saturations greater than or equal to 92% on room air. The patient was started on magnesium 1 g IV. The patients laboratory studies were reviewed and remarkable for a white count of 9.9, hemoglobin 14.9, platelets 245 with a normal differential. CMP is remarkable for BUN of 20, glucose 132, initial set of cardiac enzymes are negative, BNP less than 2, PT PTT unremarkable. ABG reveals a pH of 7.33, PCO2 41, PO2 [address] on BiPAP 15 over 5, 60%. The patient's FiO2 will be decreased based on these findings. The patient was reexamined and the patient is resting more comfortably. The patient's tachycardia has improved down into the 120s. Radiology studies were reviewed and remarkable for a chest x-ray that shows no acute cardiopulmonary abnormality. The patient meets SIRS criteria with his tachycardia and elevated respiratory rate, however sepsis is not suspected at the patient appears to be having respiratory distress related to his COPD exacerbation. The patient's white count is within normal limits. The patients results were discussed with the patient, including the plan of care. I explained that further testing and/ or monitoring is indicated based on the patients history, examination, and/ or laboratory findings. Therefore, I recommended admission for additional evaluation. The patient expressed understanding and was agreeable with this plan. The patient was admitted to the hospital in guarded condition and [facility] Critical Care Narrative Aggregate critical care time was 34 minutes. Time to perform other separately billable procedures was not included in the critical care time. My time did not include minutes spent treating any other patients simultaneously or on activities that did not directly contribute to the patient's treatment. The services I provided to this patient were to treat and/or prevent clinically significant deterioration that could result in: Respiratory failure, cardiovascular collapse, hypoxic brain injury I provided critical care services requiring my management, as noted below: Chart data review, documentation time, medication orders and management, vital sign assessments/reviewing monitor data, ordering and reviewing lab tests, ordering and interpreting/reviewing x-rays and diagnostic studies, care of the patient and discussion of the patient with the admitting physicians. Sepsis Criteria SIRS Criteria (2 or more): Heart rate over 90, RR > 20 or PaCO2 < 32 Physician Communication Physician Communication The patient's case was discussed with Dr. Alvarez who did agree to admit the patient for further evaluation and treatment at this time. Diagnosis Primary Impression: COPD exacerbation Additional Impression: Acute bronchitis Qualified Code: J20.9 - Acute bronchitis, unspecified organism Admitting Information Admitting Physician Requests: Admit Lali Jensen MD Apr 14, 2016 23:38
[2016-04-14 23:44] LABS: AUTOMATED NEUTROPHIL # 5.9 TH/MM3 (1.8-7.7); BASOPHIL # 0.1 TH/MM3 (0-0.2); BASOPHIL % 0.5 % (0.0-2.0); EOSINOPHIL # 0.4 TH/MM3 (0-0.4); EOSINOPHIL % 3.7 % (0.0-4.0); HEMATOCRIT 43.1 % (39.0-51.0); HEMO FLAGS DIFF FINAL; LYMPH % 29.4 % (9.0-44.0); LYMPHOCYTE # 2.9 TH/MM3 (1.0-4.8); MEAN CORPUSCULAR HEMOGLOBIN 31.1 PG (27.0-34.0); MEAN CORPUSCULAR HGB CONC 34.6 % (32.0-36.0); MONO % 6.9 % (0.0-8.0); NEUT % 59.5 % (16.0-70.0); PLATELET COUNT 245 TH/MM3 (150-450); RED BLOOD COUNT 4.79 MIL/MM3 (4.50-5.90); RED CELL DISTRIBUTION WIDTH 13.9 % (11.6-17.2); WHITE BLOOD COUNT 9.9 TH/MM3 (4.0-11.0)
[2016-04-14 23:48] LABS: BLOOD GAS BASE EXCESS -3.8 mmol/L (-2-2); BLOOD GAS HCO3 21 mmol/L (22-26); BLOOD GAS METHEMOGLOBIN 1.8 % (0-2); BLOOD GAS O2 HGB SATURATION 95 % (90-100); BLOOD GAS OXYGEN CONTENT 20.5 Vol % (12.0-20.0); BLOOD GAS PCO2 41 mmHg (38-42); BLOOD GAS PO2 222 mmHG (61-120); BLOOD GAS TOTAL HGB 14.9 G/DL (12.0-16.0); CRITICAL VALUE NO; DRAW SITE RT RADIAL; FIO2 60 %; NUMBER OF ARTERIAL PUNCTURES 1; OXYGEN DEVICE BiPAP; STAT YES; TEMP CORR TO 98.6; ULNAR PULSE PRESENT; VENT SETTINGS IPAP15/EPAP5
[2016-04-14 23:50] VITALS: O2SAT 98
[2016-04-14 23:58] LABS: APTT (PATIENT) 29.2 SEC (24.3-30.1); PROTHROMBIN TIME - PATIENT 10.5 SEC (9.8-11.6)
[2016-04-15] VITALS (23 sets, daily range): BP systolic 112–172; BP diastolic 66–87; PULSE 59–140; RESP 16–28; TEMP 97.9–98.2; O2SAT 95–100
--- NOTE | 2016-04-15 00:02 | RADRPT ---
EXAM DATE/TIME: 04/14/2016 23:26 [place] COMPARISON: CHEST SINGLE AP, April 03, 2016, 5:34. INDICATIONS : Pt short of breath. MEDICAL HISTORY : Hypertension. Chronic obstructive pulmonary disease. asthma SURGICAL HISTORY : None. ENCOUNTER: Initial ACUITY: 1 day PAIN SCORE: 8/10 LOCATION: Bilateral chest FINDINGS: The exam is limited secondary to motion artifact which limits the interpretation. The cardiac silhoue tte is normal in transverse diameter. The lungs are free of acute parenchymal opacity. No effusions a re identified. CONCLUSION: 1. No acute cardiopulmonary disease. Hong Myers MD on April 15, 2016 at 0:00 Board Certified Radiologist. This report was verified electronically.
[2016-04-15 00:17] LABS: ALKALINE PHOSPHATASE 62 U/L (45-117); ALT (GPT) 23 U/L (12-78); ANION GAP 12 MEQ/L (5-15); AST (GOT) 20 U/L (15-37); BICARBONATE 21.7 MEQ/L (21.0-32.0); BLOOD UREA NITROGEN 20 MG/DL (7-18); CHLORIDE 105 MEQ/L (98-107); CREATINE KINASE 115 U/L (39-308); GLOMERULAR FILTRATION RATE 72 ML/MIN (>89); MAGNESIUM 1.8 MG/DL (1.5-2.5); POTASSIUM 3.8 MEQ/L (3.5-5.1); SODIUM (NA) 139 MEQ/L (136-145); TOTAL BILIRUBIN ADULT 0.6 MG/DL (0.2-1.0)
[2016-04-15 00:29] LABS: CKMB LESS THAN 0.5 NG/ML (0.5-3.6)
[2016-04-15] MEDS ORDERED: SODIUM CHLORIDE 0.9% FLUSH 5 ML FLUSH FLUSH PRN (01:15)
[2016-04-15] MEDS ORDERED: ACETAMINOPHEN 325 MG TAB PO PRN (01:15)
[2016-04-15] MEDS ORDERED: BISACODYL 10 MG SUPP PR PRN (01:15)
[2016-04-15] MEDS ORDERED: ONDANSETRON HCL 4 MG/2 ML VIAL IVP PRN (01:15)
[2016-04-15] MEDS ORDERED: MORPHINE SULFATE 4 MG/ML INJ IV PRN (01:15)
[2016-04-15] MEDS ORDERED: ACETAMINOPHEN/HYDROcodone 325 MG/5 MG TAB PO PRN (01:15)
[2016-04-15] MEDS: LEVOFLOXACIN 750 MG PREMIX INJ 150 ML IV SCH ×2 (02:02→23:29)
--- NOTE | 2016-04-15 02:08 | HHI.HP ---
[facility] Service [facility] Primary Care Physician Mireya Carter MD Admission Diagnosis COPD exacerbation Diagnoses: (1) COPD (chronic obstructive pulmonary disease) Diagnosis: Principal (2) Hypoxia Diagnosis: Principal (3) HTN (hypertension) Diagnosis: Principal (4) Tobacco abuse Diagnosis: Principal Travel History International Travel<30 Days: No Contact w/Intl Traveler <30 Da: No Traveled to Known Affected Are: No History of Present Illness This is a 51-year-old male with a PMH of COPD, HTN, Tobacco Abuse, Anxiety, CAD and H/o Cocaine Abuse who was brought to the ER by EMS secondary to SOB, noted to have hypoxia w/ O2 sat 88%. Multiple ER presentations, admissions and h/o Intubation for same. On arrival, BP 194/96, HR 147, O2 sat 89% on RA, Afebrile. Placed on BiPAP with O2 sat 94% on FiO2 60%. ABG with pH 7.53, PCO2 41, PO2 222 on BiPAP with 60% FiO2. S/p Solu-Medrol and DuoNeb w/ some improvement, weaned down to 35% FIO2. CBC unremarkable. BMP essentially unremarkable except for BUN 20, GFR 72. Troponin negative. Urine Drug Screen pending. CXR with no acute findings. Review of Systems Except as stated in HPI: all other systems reviewed are Neg ROS: 14 point review of systems otherwise negative. Past Family Social History Past Medical History PMH: COPD, HTN, Tobacco Abuse, Anxiety, CAD and H/o Cocaine Abuse Past Surgical History PAST SURGICAL HISTORY: Cardiac Stent Allergies: Coded Allergies: *MDRO Multi-Drug Resistant Organism (Verified Adverse Reaction, Unknown, Cleared, 04/14/16) MRSA (bronch wash) - 09/2011 MRSA PCR Screen negative 12/02/14 and 12/06/14. Cleared per Infection Control. Family History PAST FAMILY HISTORY: Reviewed. No h/o DM or CAD Social History PAST SOCIAL HISTORY: Occasional alcohol. Smokes 1/2ppd. h/o Cocaine Abuse, currently in Rehab. Physical Exam Vital Signs Vital Signs Date Time Temp Pulse Resp B/P Pulse Ox O2 Delivery O2 Flow Rate FiO2 04/14/16 23:50 98 30 04/14/16 23:10 94 60 04/14/16 23:10 94 BiPAP 60 04/14/16 23:06 90 Nasal Cannula 4 04/14/16 23:00 Nasal Cannula 04/14/16 22:58 97.4 147 40 194/96 89 Physical Exam PE: GENERAL: Middle-aged black male in no acute distress. Currently on BiPAP HEENT: PERRLA, EOMI. No scleral icterus or conjunctival pallor. No lid lag or facial droop. CARDIOVASCULAR: Regular rate and rhythm. No obvious murmurs to auscultation. No chest tenderness to palpation. RESPIRATORY: No obvious rhonchi. Occasional expiratory wheezing. Clear to auscultation. Breath sounds equal bilaterally. GASTROINTESTINAL: Abdomen soft, non-tender, nondistended. BS normal. MUSCULOSKELETAL: Extremities without clubbing, cyanosis, or edema. No obvious deformities. NEUROLOGICAL: Awake, alert and oriented x4. No focal neurologic deficits. Moving both upper and lower extremities spontaneously. Laboratory Laboratory Tests Test 04/14/16 04/14/16 23:00 23:37 Prothrombin Time 10.5 Prothromb Time International 1.0 Ratio Activated Partial 29.2 Thromboplast Time White Blood Count 9.9 Red Blood Count 4.79 Hemoglobin 14.9 Hematocrit 43.1 Mean Corpuscular Volume 90.0 Mean Corpuscular Hemoglobin 31.1 Mean Corpuscular Hemoglobin 34.6 Concent Red Cell Distribution Width 13.9 Platelet Count 245 Mean Platelet Volume 8.1 Neutrophils (%) (Auto) 59.5 Lymphocytes (%) (Auto) 29.4 Monocytes (%) (Auto) 6.9 Eosinophils (%) (Auto) 3.7 Basophils (%) (Auto) 0.5 Neutrophils # (Auto) 5.9 Lymphocytes # (Auto) 2.9 Monocytes # (Auto) 0.7 Eosinophils # (Auto) 0.4 Basophils # (Auto) 0.1 CBC Comment DIFF FINAL Differential Comment Sodium Level 139 Potassium Level 3.8 Chloride Level 105 Carbon Dioxide Level 21.7 Anion Gap 12 Blood Urea Nitrogen 20 Creatinine 1.27 Estimat Glomerular Filtration 72 Rate Random Glucose 132 Calcium Level 8.7 Magnesium Level 1.8 Total Bilirubin 0.6 Aspartate Amino Transf 20 (AST/SGOT) Alanine Aminotransferase 23 (ALT/SGPT) Alkaline Phosphatase 62 Total Creatine Kinase 115 Creatine Kinase MB LESS THAN 0.5 Troponin I LESS THAN 0.02 B-Type Natriuretic Peptide LESS THAN 2 Total Protein 7.5 Albumin 3.8 Blood Gas Puncture Site RT RADIAL Blood Gas Patient Temperature 98.6 Blood Gas HCO3 21 Blood Gas Base Excess -3.8 Blood Gas Oxygen Saturation 95 Arterial Blood pH 7.33 Arterial Blood Partial 41 Pressure CO2 Arterial Blood Partial 222 Pressure O2 Arterial Blood Oxygen Content 20.5 Arterial Blood 2.0 Carboxyhemoglobin Arterial Blood Methemoglobin 1.8 Blood Gas Hemoglobin 14.9 Oxygen Delivery Device BiPAP Blood Gas Ventilator Setting IPAP15/EPAP5 Blood Gas Inspired Oxygen 60 Result Diagram: 04/14/16229904/14/162299 Assessment and Plan Problem List: (1) COPD (chronic obstructive pulmonary disease) ICD Code: J44.9 Status: Acute (2) Hypoxia ICD Code: R09.02 Status: Acute (3) HTN (hypertension) ICD Code: I10 Status: Acute (4) Tobacco abuse ICD Code: Z72.0 Status: Chronic Assessment and Plan A/P: 1. COPD: Chronic Respiratory Failure w/ Acute Exacerbation, +respiratory distress and hypoxia requiring BIPAP. Multiple admissions for same. O2 sat initially 88% on RA, 94% on BIPAP w/ FIO2 60%, now weaned to 30% FIO2. CXR w/ no acute findings, images reviewed by me. S/p Solu-Medrol and DuoNeb in ER. Continue w/ Solu-Medrol, DuoNeb q4h and q2h prn, Symbicort, Mucinex, Levaquin for empiric tx of Atypical PNA. Monitor closely. 2. Hypoxia: O2 sat 88% on RA, currently on BIPAP w/ improvement. Continue BIPAP, wean as tolerated. 3. HTN: BP 194/96, HR 147, likely compounded by acute SOB and respiratory distress. Monitor BP, antihypertensives as needed. 4. Tobacco Abuse: Counselled. Ativan prn. 5. DVT Prophylaxis: SCD/Teds. 6. Social work for d/c planning as needed. 7. Case discussed at length w/ ER physician. Physician Certification 2 Midnight Certification Type: Admission for Inpatient Services Order for Inpatient Services The services are ordered in accordance with Medicare regulations or non- Medicare payer requirements, as applicable. In the case of services not specified as inpatient-only, they are appropriately provided as inpatient services in accordance with the 2-midnight benchmark. Estimated LOS (days): 2 days is the estimated time the patient will need to remain in the hospital, assuming treatment plan goals are met and no additional complications. Post-Hospital Plan: Not yet determined Laila Alvarez MD Apr 15, 2016 02:08
[2016-04-15] MEDS: methylPREDNISolone SOD SUCC 40 MG/1 ML VIAL IV PUSH SCH ×4 (06:06→23:29)
[2016-04-15] MEDS: SODIUM CHLORIDE 0.9% FLUSH 5 ML FLUSH FLUSH SCH ×2 (08:04→20:50)
[2016-04-15] MEDS: RESP: ALBUTEROL 2.5 MG/IPRATROPIUM 0.5 MG NEB (SCH) NEB ×4 (08:13→20:11)
--- NOTE | 2016-04-15 09:49 | EKG ---
Date Performed: 04/14/2016 Time Performed: 23:19:36 PTAGE: 51 years EKG: SINUS TACHYCARDIA, POSSIBLE ATRIAL FLUTTER INCOMPLETE RIGHT BUNDLE BRANCH BLOCK ABNORMAL [facility] ECG Compared to prior tracing no significant change PREVIOUS TRACING : 04/09/2016 05.38 DOCTOR: Hong Vázquez Interpretating Date/Time 04/15/2016 09:47:21
[2016-04-15] MEDS: guaiFENesin E.R. 600 MG TAB PO SCH ×2 (09:54→20:50)
[2016-04-15] MEDS: BUDESONIDE-FORMOTEROL 160/4.5 MCG INHALER INH SCH ×2 (13:27→20:50)
[2016-04-16] VITALS (8 sets, daily range): BP systolic 136–154; BP diastolic 78–96; PULSE 90–101; RESP 16–18; TEMP 98.4–98.7; O2SAT 96–100
[2016-04-16] MEDS: RESP: ALBUTEROL 2.5 MG/IPRATROPIUM 0.5 MG NEB (PRN) NEB ×2 (02:44→23:07)
[2016-04-16 03:15] LABS: BLOOD, URINE NEG (NEG); GLUCOSE,URINE NEG (NEG); KETONE, URINE NEG (NEG); NITRITE,URINE NEG (NEG); PH, URINE 6.5 (5.0-8.5); URINE COLOR YELLOW (YELLW/STRAW)
[2016-04-16 03:17] LABS: COMMENT (UR) CULT NOT INDICATED; CULTURE IF INDICATED CULT NOT INDICATED
[2016-04-16 03:23] LABS: AMPHETAMINE, URINE NEG (NEG); BARBITURATES, URINE NEG (NEG); COCAINE, URINE NEG (NEG)
[2016-04-16] MEDS: methylPREDNISolone SOD SUCC 40 MG/1 ML VIAL IV PUSH SCH ×2 (05:50→11:38)
[2016-04-16 05:56] LABS: HEMATOCRIT 38.9 % (39.0-51.0); MEAN CELL VOLUME 89.6 FL (80.0-100.0); MEAN CORPUSCULAR HEMOGLOBIN 30.2 PG (27.0-34.0); MEAN CORPUSCULAR HGB CONC 33.8 % (32.0-36.0); PLATELET COUNT 221 TH/MM3 (150-450); RED BLOOD COUNT 4.35 MIL/MM3 (4.50-5.90); RED CELL DISTRIBUTION WIDTH 13.9 % (11.6-17.2); WHITE BLOOD COUNT 15.7 TH/MM3 (4.0-11.0)
[2016-04-16 06:02] LABS: HEMO FLAGS AUTO DIFF
[2016-04-16 06:19] LABS: ANION GAP 9 MEQ/L (5-15); AST (GOT) 10 U/L (15-37); BICARBONATE 21.4 MEQ/L (21.0-32.0); BLOOD UREA NITROGEN 18 MG/DL (7-18); CHLORIDE 106 MEQ/L (98-107); GLOMERULAR FILTRATION RATE 96 ML/MIN (>89); POTASSIUM 4.5 MEQ/L (3.5-5.1); SODIUM (NA) 136 MEQ/L (136-145)
[2016-04-16 06:22] LABS: ALKALINE PHOSPHATASE 55 U/L (45-117); ALT (GPT) 22 U/L (12-78); TOTAL BILIRUBIN ADULT 0.4 MG/DL (0.2-1.0)
[2016-04-16 06:58] LABS: BANDS 4 % (0-6); NEUTROPHIL # MANUAL DIFF 14.4 TH/MM3 (1.8-7.7); PLATELET ESTIMATE SMEAR NORMAL (NORMAL); PLATELET MORPHOLOGY NORMAL (NORMAL); POLYS (SEG NEUTROPHILS) 88 % (16-70); SCAN/DIFF FINAL DIFF MANUAL; WBC DIFF SAMPLE 100
[2016-04-16] MEDS: RESP: ALBUTEROL 2.5 MG/IPRATROPIUM 0.5 MG NEB (SCH) NEB ×4 (08:27→19:33)
[2016-04-16] MEDS: guaiFENesin E.R. 600 MG TAB PO SCH ×2 (08:47→20:47)
[2016-04-16] MEDS: SODIUM CHLORIDE 0.9% FLUSH 5 ML FLUSH FLUSH SCH ×2 (08:48→20:49)
[2016-04-16] MEDS: BUDESONIDE-FORMOTEROL 160/4.5 MCG INHALER INH SCH ×2 (08:48→20:48)
--- NOTE | 2016-04-16 13:06 | HHI.PR ---
Subjective Remarks Follow-up for shortness of breath Shortness of breath better, still requiring oxygen specially at night, afebrile. No nausea or vomiting. Objective Vitals Vital Signs Date Time Temp Pulse Resp B/P Pulse Ox O2 Delivery O2 Flow Rate FiO2 04/16/16 12:42 98.7 94 18 137/82 97 04/16/16 12:42 94 04/16/16 08:30 98.6 97 18 142/78 97 04/16/16 08:30 98 04/16/16 08:29 96 21 04/16/16 07:45 97 Room Air 04/16/16 04:00 98.4 101 18 154/96 99 04/16/16 04:00 101 04/16/16 00:00 98.5 97 16 136/78 100 04/16/16 00:00 97 04/15/16 20:11 96 04/15/16 20:00 100 04/15/16 20:00 98.2 100 18 155/82 97 04/15/16 20:00 97 Room Air 04/15/16 18:00 94 04/15/16 17:00 96 04/15/16 16:00 97.9 94 16 127/75 96 04/15/16 16:00 97 04/15/16 15:00 104 04/15/16 14:00 96 I/O 04/15/16 04/15/16 04/15/16 04/16/16 04/16/16 04/16/16 07:00 15:00 23:00 07:00 15:00 23:00 Intake Total 540 ml 630 ml Output Total 325 ml 650 ml Balance 215 ml -20 ml Intake Oral 540 ml 480 ml IV Total 150 ml Output Urine Total 325 ml 650 ml # Voids 1 # Bowel Movements 1 Result Diagram: 04/16/16 0500 04/16/16 0500 Objective Remarks GENERAL: Middle-aged black male in no acute distress. Currently on BiPAP HEENT: PERRLA, EOMI. No scleral icterus or conjunctival pallor. No lid lag or facial droop. CARDIOVASCULAR: Regular rate and rhythm. No obvious murmurs to auscultation. No chest tenderness to palpation. RESPIRATORY: No obvious rhonchi. Decreased breath sounds, no wheezing GASTROINTESTINAL: Abdomen soft, non-tender, nondistended. BS normal. MUSCULOSKELETAL: Extremities without clubbing, cyanosis, or edema. No obvious deformities. NEUROLOGICAL: Awake, alert and oriented x4. No focal neurologic deficits. Moving both upper and lower extremities spontaneously. A/P Problem List: (1) COPD (chronic obstructive pulmonary disease) ICD Code: J44.9 Status: Acute (2) Hypoxia ICD Code: R09.02 Status: Acute (3) HTN (hypertension) ICD Code: I10 Status: Acute (4) Tobacco abuse ICD Code: Z72.0 Status: Chronic Assessment and Plan 1. COPD: Chronic Respiratory Failure w/ Acute Exacerbation, +respiratory distress and hypoxia requiring BIPAP. Multiple admissions for same. O2 sat initially 88% on RA, 94% on BIPAP w/ FIO2 60%, now weaned to 30% FIO2. CXR w/ no acute findings, images reviewed by me. S/p Solu-Medrol and [place] in ER. Wean from Solu-Medrol, switched to prednisone today, continue Symbicort, Levaquin. Respiratory walk fit test, might need oxygen. Sputum culture grew normal justin 2. Hypoxia: O2 sat 88% on RA, currently on BIPAP w/ improvement. Continue BIPAP, wean as tolerated. 3. HTN: BP 194/96, HR 147, likely compounded by acute SOB and respiratory distress. Monitor BP, antihypertensives as needed. 4. Tobacco Abuse: Counselled. Ativan prn. 5. DVT Prophylaxis: SCD/Teds. Consult social media content specialist. Discharge Planning Possible discharge tomorrow Yadiel Bañuelos MD Apr 16, 2016 13:06
[2016-04-16] MEDS ORDERED: OXYGENTANK NAS.CANULA (13:09)
[2016-04-16] MEDS: predniSONE 20 MG TAB PO SCH (20:47)
[2016-04-17] VITALS (11 sets, daily range): BP systolic 95–149; BP diastolic 70–90; PULSE 79–104; RESP 14–18; TEMP 97.8–98.8; O2SAT 95–97
[2016-04-17] MEDS: RESP: ALBUTEROL 2.5 MG/IPRATROPIUM 0.5 MG NEB (SCH) NEB ×2 (08:02→11:21)
[2016-04-17] MEDS ORDERED: LEVOFLOXACIN 750 MG TAB PO SCH (09:00)
[2016-04-17] MEDS: predniSONE 20 MG TAB PO SCH (09:48)
[2016-04-17] MEDS: BUDESONIDE-FORMOTEROL 160/4.5 MCG INHALER INH SCH (09:49)
[2016-04-17] MEDS: guaiFENesin E.R. 600 MG TAB PO SCH (09:49)
[2016-04-17] MEDS: SODIUM CHLORIDE 0.9% FLUSH 5 ML FLUSH FLUSH SCH (09:49)
[2016-04-17] MEDS ORDERED: PRED10 PO (11:08)
[2016-04-17] MEDS ORDERED: IPRASOL NEB (11:08)
[2016-04-17] MEDS ORDERED: MUCI600T PO (11:08)
[2016-04-17] MEDS ORDERED: SYMB160A INH (11:08)
[2016-04-17] MEDS ORDERED: LEVA750T PO (11:08)
--- NOTE | 2016-04-17 14:32 | HHI.DS ---
Discharge Summary Admission Date Apr 15, 2016 at 01:01 Discharge Date: Apr 17, 2016 Admitting Diagnosis COPD exacerbation (1) COPD (chronic obstructive pulmonary disease) ICD Code: J44.9 Diagnosis: Principal (2) Hypoxia ICD Code: R09.02 Diagnosis: Secondary (3) HTN (hypertension) ICD Code: I10 Diagnosis: Secondary (4) Tobacco abuse ICD Code: Z72.0 Diagnosis: Secondary Procedures none Brief History - From Admission This is a 51-year-old male with a PMH of COPD, HTN, Tobacco Abuse, Anxiety, CAD and H/o Cocaine Abuse who was brought to the ER by EMS secondary to SOB, noted to have hypoxia w/ O2 sat 88%. Multiple ER presentations, admissions and h/o Intubation for same. On arrival, BP 194/96, HR 147, O2 sat 89% on RA, Afebrile. Placed on BiPAP with O2 sat 94% on FiO2 60%. ABG with pH 7.53, PCO2 41, PO2 222 on BiPAP with 60% FiO2. S/p Solu-Medrol and DuoNeb w/ some improvement, weaned down to 35% FIO2. CBC unremarkable. BMP essentially unremarkable except for BUN 20, GFR 72. Troponin negative. Urine Drug Screen pending. CXR with no acute findings. CBC/BMP: 04/16/16 0500 04/16/16 0500 Significant Findings Laboratory Tests Test 04/14/16 04/14/16 04/16/16 23:00 23:37 05:00 Blood Urea Nitrogen 20 MG/DL (7-18) Estimat Glomerular Filtration 72 ML/MIN (>89) Rate Random Glucose 132 MG/DL 130 MG/DL (74-106) (74-106) Creatine Kinase MB LESS THAN 0.5 NG/ML (0.5-3.6) Troponin I LESS THAN 0.02 NG/ML (0.02-0.05) Blood Gas HCO3 21 mmol/L (22-26) Blood Gas Base Excess -3.8 mmol/L (-2-2) Arterial Blood pH 7.33 (7.380-7.420) Arterial Blood Partial 222 mmHG Pressure O2 (61-120) Arterial Blood Oxygen Content 20.5 Vol % (12.0-20.0) White Blood Count 15.7 TH/MM3 (4.0-11.0) Red Blood Count 4.35 MIL/MM3 (4.50-5.90) Hematocrit 38.9 % (39.0-51.0) Neutrophils % (Manual) 88 % (16-70) Lymphocytes % 6 % (9-44) Neutrophils # (Manual) 14.4 TH/MM3 (1.8-7.7) Aspartate Amino Transf 10 U/L (15-37) (AST/SGOT) PE at Discharge GENERAL: Middle-aged black male in no acute distress. Currently on BiPAP HEENT: PERRLA, EOMI. No scleral icterus or conjunctival pallor. No lid lag or facial droop. CARDIOVASCULAR: Regular rate and rhythm. No obvious murmurs to auscultation. No chest tenderness to palpation. RESPIRATORY: No obvious rhonchi. Decreased breath sounds, no wheezing GASTROINTESTINAL: Abdomen soft, non-tender, nondistended. BS normal. MUSCULOSKELETAL: Extremities without clubbing, cyanosis, or edema. No obvious deformities. NEUROLOGICAL: Awake, alert and oriented x4. No focal neurologic deficits. Moving both upper and lower extremities spontaneously. Hospital Course This is a 51-year-old male with a PMH of COPD, HTN, Tobacco Abuse, Anxiety, CAD and H/o Cocaine Abuse who was brought to the ER by EMS secondary to SOB, noted to have hypoxia w/ O2 sat 88%. Patient was initially placed on BiPAP for COPD exacerbation. Chest x-ray was unremarkable. Patient was started on Solu- Medrol and DuoNeb's. After several days, the patient was weaned from Solu- Medrol and switch to prednisone. He will continue Symbicort and finish his course of Levaquin. Culture grew normal justin. He tolerated switch to prednisone. Patient will be discharged home to follow-up with his primary care physician. Pt Condition on Discharge: Good Discharge Disposition: Discharge Home Discharge Time: > 30 minutes Discharge Instructions DIET: Follow Instructions for: Heart Healthy Diet Activities you can perform: Regular-No Restrictions New Medications: Oxygen tank (Oxygen tank) 1 Ea [facility] O[facility] Concentrator Portable Gaseous 2 L/min via Nasal Cannula Continuous For 99 months HYPOXEMIA PREVENTION #1 CYLINDER Prednisone (Prednisone) 10 Mg Tab 10 MG PO DAILY 3 tabs BIDx3d,then 4 tabs ODx3 days,3 tabs ODx3 days,2 tabs OD x 3 days,1 tab OD x 3d, then 1/2 tab x5d then stop. COPD #60 Ref 0 TAB Budesonide-Formoterol Inh (Symbicort Inh) 160-4.5 Mcg/Act Aero 2 PUFF INH Q12HR COPD #1 INHALER Guaifenesin ER 12 HR (Mucinex ER 12 HR) 600 Mg Regina 600 MG PO BID Cough #14 TAB Ipratropium-Albuterol Neb (Duoneb) 0.5-2.5 Mg/3 Ml Neb 1 AMPULE NEB Q4HR WHILE AWAKE NEB copd #1 BOX Levofloxacin (Levaquin) 750 Mg Tab 750 MG PO DAILY COPD #5 TAB Continued Medications: Albuterol 18 GM Inh (Ventolin Hfa 18 GM Inh) 90 Mcg/Act Aer 2 PUFF INH Q4-6H PRN SHORTNESS OF BREATH #1 Ref 0 INHALER Hydralazine (Hydralazine) 10 Mg Tab 10 MG PO Q6H PRN SBP>160, DBP>90 #120 Ref 11 TAB Discontinued Medications: Albuterol Neb (Albuterol Neb) 2.5 Mg/3 Ml Neb 2.5 MG NEB Q4-6H While awake Breathing Treatment #60 Ref 0 NEBULE Albuterol Neb (Albuterol Neb) 2.5 Mg/3 Ml Neb 2.5 MG NEB Q4-6H While awake Breathing Treatment #120 Ref 11 NEBULE Doxycycline Hyclate (Doxycycline Hyclate) 100 Mg Cap 100 MG PO BID Infection #20 Ref 0 CAP Ipratropium Neb (Ipratropium Neb) 0.5 Mg/2.5 Ml Amp 0.5 MG NEB Q4-6H SHORTNESS OF BREATH #120 Ref 11 NEBULE Levofloxacin (Levaquin) 750 Mg Tab 750 MG PO DAILY #6 Ref 0 TAB Methylprednisolone Dosepak (Medrol Dosepak) 4 Mg Dspk 4 MG PO DIRECTED Per Pharmacist direction #1 Ref 0 DSPK Prednisone (Prednisone) 10 Mg Tab 10 MG PO DAILY Take 5 pills (50mg) daily for 5 days, then 4 pills (40mg) daily for 5 days, then 3 pills (30mg) daily for 5 days, then 2 pills (20mg) daily for 5 days, then 1 pill (10mg) daily for 5 days. #75 Ref 0 TAB EddaYadiel MD Apr 17, 2016 14:32 for 5 days, then 3 pills (30mg) daily for 5 days, then 2 pills (20mg) daily for 5 days, then 1 pill (10mg) daily for 5 days. #75 Ref 0 TAB EddaYadiel MD Apr 17, 2016 14:32
== END 2016-04-17 12:10 | disposition home or self-care (01) | DRG 189 ==
LOC: NEPE 22:56 → NEDA 04-15 01:01 → NEDH 04-15 05:27 → HCIS 04-15 08:55
PROVIDERS: ADMIT Hospitalist; ATTEND Hospitalist
PROC: 5A09457 Assistance with Respiratory Ventilation, 24-96 Consecutive Hours, Continuous Positive Airway Pressure (ICD-10-PCS; principal; 2016-04-14)
DX: J96.21 Acute and chronic respiratory failure with hypoxia (principal); J44.1 Chronic obstructive pulmonary disease with (acute) exacerbation; I10 Essential (primary) hypertension; I25.10 Atherosclerotic heart disease of native coronary artery without angina pectoris; E78.5 Hyperlipidemia, unspecified; F41.9 Anxiety disorder, unspecified; J45.909 Unspecified asthma, uncomplicated; E78.00 Pure hypercholesterolemia, unspecified; I25.2 Old myocardial infarction; G47.30 Sleep apnea, unspecified; F17.210 Nicotine dependence, cigarettes, uncomplicated; Z95.5 Presence of coronary angioplasty implant and graft
CPT/HCPCS: 36600; 71010; 80053; 80307; 81001; 82550; 82552; 82805; 83735; 83880; 84484; 85007; 85025; 85027; 85610; 85730; 87070; 87205; 93005; 94002; 94003; 94620; 94640; 94664; 96374; 96375; J1956; J2060; J2920; J2930; J3475; J7512

== ENCOUNTER 2016-05-07 19:32 | Emergency (ER) | payer OTHER ==
[~2016-05-07] VITALS: Ht 175.3 cm; Wt 82.0 kg
[~2016-05-07 19:32] MED LIST changes: -ALBU0.08 NEB; -DOXY100C PO; -IPRA0.02 NEB; +IPRASOL NEB; -MEDR4PAK PO; +MUCI600T PO; +OXYGENTANK NAS.CANULA; +SYMB160A INH
[2016-05-07 19:38] VITALS: BP 134/80; PULSE 99; RESP 20; TEMP 97.8; O2SAT 95
[2016-05-07 19:45] VITALS: BP 134/80; PULSE 99; RESP 20; TEMP 97.8; O2SAT 95
[2016-05-07] MEDS ORDERED: SODIUM CHLOR 0.9% 1000 ML INJ 1,000 ML IV SCH (19:50)
--- NOTE | 2016-05-07 19:55 | PD ---
Physical Exam Date Seen by Provider: May 07, 2016 Data Data Last Documented VS Vital Signs Date Time Temp Pulse Resp B/P Pulse Ox O2 Delivery O2 Flow Rate FiO2 05/07/16 19:45 97.8 99 20 134/80 95 Orders Complete Blood Count With Diff (05/07/16 19:50) Basic Metabolic Panel (Bmp) (05/07/16 19:50) Troponin I (05/07/16 19:50) Electrocardiogram (05/07/16 19:50) Chest, Single Ap (05/07/16 19:50) Duoneb Q15min X 3 Doses (05/07/16 20:00) Sodium Chlor 0.9% 1000 Ml Inj (Ns 1000 M (05/07/16 19:50) MDM Medical Record Reviewed: Yes Supervised Visit with MIGUELANGEL: Yes Interpretation(s) Vital Signs Date Time Temp Pulse Resp B/P Pulse Ox O2 Delivery O2 Flow Rate FiO2 05/07/16 19:45 97.8 99 20 134/80 95 05/07/16 19:38 97.8 99 20 134/80 95 05/07/16 19:38 99 20 95 Differential Diagnosis COPD exacerbation, pneumonia, ACS, arrhythmia Narrative Course I, Dr. Weiner, have reviewed the advance practice practitioner's documentation and am in agreement, met with the patient face to face, made the diagnosis, and the medical decision making was done by me. *My assessment and Findings: Patient is a 51-year-old male with history of COPD, presents to emergency room with COPD exacerbation. He woke up this morning and felt short of breath, reports that he ran out of his Symbicort today, he does see Dr. Carter in the office. Denies any fevers or chills, denies any chest pain at this time. Patient did receive Solu-Medrol as well as albuterol treatments by EMS, patient reports that he is feeling better at this time after these treatments. On exam , patient is still currently wheezing, plan to give neb she minutes and reevaluate patient. Patient currently with COPD exacerbation. Ultimately, patient will be discharged with instructions to follow-up with his primary care doctor in the office. Patient instructed to stop smoking cigarettes. Nathaly Weiner DO May 07, 2016 19:55
--- NOTE | 2016-05-07 20:06 | PD ---
HPI Chief Complaint: Respiratory Distress Time Seen by Provider: 20:01 Travel History International Travel<30 days: No Contact w/Intl Traveler<30days: No Traveled to known affect area: No History of Present Illness HPI 51-year-old male with a history of COPD, hypertension, CAD, anxiety, history of cocaine abuse is brought to the emergency department by EMS for evaluation of shortness of breath. Patient states that about 2 hours ago he woke up feeling very short of breath with wheezing. States that he is having chest tightness and feels as though his having a flareup of his COPD. States he does have chest pain with coughing. States he has a productive cough with brown sputum. States that he ran out of his Symbicort inhaler today. Denies taking any antibiotics recently. States that he finished a prescription for prednisone 3 days ago. He was given 3 albuterol treatments and Solu-Medrol 125 mg IV by EMS and reports that this did improve his symptoms but he is still experiencing some shortness of breath. Denies any fever, chills, nausea, vomiting, lightheadedness, dizziness, abdominal pain. Patient continues to smoke cigarettes. Denies drug use. No other complaints. PFSH Past Medical History Asthma: Yes Autoimmune Disease: No Blood Disorders: No Anxiety: Yes Heart Rhythm Problems: No Cancer: No Cardiac Catheterization: Yes Cardiovascular Problems: Yes High Cholesterol: Yes Chest Pain: Yes Congestive Heart Failure: No COPD: Yes Diabetes: No Diminished Hearing: No Endocrine: No Gastrointestinal Disorders: Yes Genitourinary: No Hypertension: No Immune Disorder: No Implanted Vascular Access Dvce: No Musculoskeletal: No Neurologic: No Psychiatric: No Reproductive: No Respiratory: Yes Immunizations Current: Yes Myocardial Infarction: Yes Sleep Apnea: No Thyroid Disease: No Tetanus Vaccination: < 5 Years PNEUMOCCOCAL Vaccine (Year): 1 Past Surgical History Surgical History: No Previous Surgery AICD: No Arteriovenous Shunt: No Coronary Stent: Yes Insulin Pump: No Joint Replacement: No Pacemaker: No Other Surgery: No Social History Alcohol Use: No Tobacco Use: Yes (1/2 pack) Substance Use: No Allergies-Medications (Allergen,Severity, Reaction): Coded Allergies: *MDRO Multi-Drug Resistant Organism (Verified Adverse Reaction, Unknown, Cleared, 05/07/16) MRSA (bronch wash) - 09/2011 MRSA PCR Screen negative 12/02/14 and 12/06/14. Cleared per Infection Control. Reported Meds & Prescriptions Reported Meds & Active Scripts Active Ventolin Hfa 18 GM Inh (Albuterol Sulfate) 90 Mcg/Act Aer 2 Puff INH Q4-6H PRN Symbicort Inh (Budesonide/Formoterol Fumarate) 160-4.5 Mcg/Act Aero 2 Puff INH Q12HR Mucinex ER 12 HR (Guaifenesin) 600 Mg Regina 600 Mg PO BID 7 Days Zithromax Z-Flavio (Azithromycin) 250 Mg Dspk 250 Mg PO DIRECTED 500 MG (2 tabs) day 1, then 1 tab days 2-5. Prednisone 20 Mg Tab 20 Mg PO BID 5 Days Prednisone 10 Mg Tab 10 Mg PO DAILY 3 tabs BIDx3d,then 4 tabs ODx3 days,3 tabs ODx3 days,2 tabs OD x 3 days,1 tab OD x 3d, then 1/2 tab x5d then stop. Levaquin (Levofloxacin) 750 Mg Tab 750 Mg PO DAILY Duoneb (Ipratropium-Albuterol Neb) 0.5-2.5 Mg/3 Ml Neb 1 Ampule NEB Q4HR WHILE AWAKE NEB Mucinex ER 12 HR (Guaifenesin) 600 Mg Regina 600 Mg PO BID Symbicort Inh (Budesonide/Formoterol Fumarate) 160-4.5 Mcg/Act Aero 2 Puff INH Q12HR Oxygen tank (Oxygen) 1 Ea Tank 2 Liter SEA.[employer] CONTINUOUS Oxygen Concentrator Portable Gaseous 2 L/min via Nasal Cannula Continuous For 99 months Hydralazine (Hydralazine HCl) 10 Mg Tab 10 Mg PO Q6H PRN Ventolin Hfa 18 GM Inh (Albuterol Sulfate) 90 Mcg/Act Aer 2 Puff INH Q4-6H PRN Review of Systems Except as stated in HPI: all other systems reviewed are Neg Physical Exam Narrative GENERAL: Well-nourished and well-developed pleasant male patient in no acute distress who is nontoxic appearing. SKIN: Warm and dry. HEAD: Normocephalic and atraumatic. EYES: No injection, drainage, or hyphema noted. PERRLA. EOMI. ENT: No nasal drainage noted. Oropharynx is clear. NECK: Supple and the trachea is midline. CARDIOVASCULAR: Regular rate and rhythm. RESPIRATORY: Bilateral wheezing throughout but good air movement. No accessory muscle use, rhonchi, or crackles. Speaking in full sentences without difficulty. GASTROINTESTINAL: Abdomen is soft, non-tender, and nondistended. MUSCULOSKELETAL: No obvious deformities, swelling, cyanosis, or ecchymosis is present throughout the upper and lower extremities. Patient has full range of motion without any signs of neurovascular compromise. NEUROLOGICAL: Awake, alert, and oriented. Normal speech and gait. Cranial nerves are grossly intact. Data Data Last Documented VS Vital Signs Date Time Temp Pulse Resp B/P Pulse Ox O2 Delivery O2 Flow Rate FiO2 05/07/16 19:45 97.8 99 20 134/80 95 Orders Complete Blood Count With Diff (05/07/16 19:50) Basic Metabolic Panel (Bmp) (05/07/16 19:50) Troponin I (05/07/16 19:50) Electrocardiogram (05/07/16 19:50) Chest, Single Ap (05/07/16 19:50) Albuterol-Ipratropium Neb (Duoneb Neb) (05/07/16 20:00) Sodium Chlor 0.9% 1000 Ml Inj (Ns 1000 M (05/07/16 19:50) Labs Laboratory Tests Test 05/07/16 21:15 White Blood Count 5.9 TH/MM3 Red Blood Count 4.54 MIL/MM3 Hemoglobin 13.9 GM/DL Hematocrit 40.9 % Mean Corpuscular Volume 90.2 FL Mean Corpuscular Hemoglobin 30.7 PG Mean Corpuscular Hemoglobin 34.0 % Concent Red Cell Distribution Width 14.2 % Platelet Count 238 TH/MM3 Mean Platelet Volume 8.4 FL Neutrophils (%) (Auto) 48.1 % Lymphocytes (%) (Auto) 36.7 % Monocytes (%) (Auto) 6.6 % Eosinophils (%) (Auto) 8.0 % Basophils (%) (Auto) 0.6 % Neutrophils # (Auto) 2.8 TH/MM3 Lymphocytes # (Auto) 2.2 TH/MM3 Monocytes # (Auto) 0.4 TH/MM3 Eosinophils # (Auto) 0.5 TH/MM3 Basophils # (Auto) 0.0 TH/MM3 CBC Comment DIFF FINAL Differential Comment Sodium Level 141 MEQ/L Potassium Level 3.6 MEQ/L Chloride Level 109 MEQ/L Carbon Dioxide Level 21.4 MEQ/L Anion Gap 11 MEQ/L Blood Urea Nitrogen 10 MG/DL Creatinine 0.94 MG/DL Estimat Glomerular Filtration 102 ML/MIN Rate Random Glucose 118 MG/DL Calcium Level 8.6 MG/DL Troponin I LESS THAN 0.02 NG/ML MDM Medical Decision Making Medical Screen Exam Complete: Yes Emergency Medical Condition: Yes Differential Diagnosis COPD exacerbation versus bronchitis versus pneumonia versus tobacco use Narrative Course 51-year-old male with history of COPD is brought to the emergency department by EMS for evaluation of shortness of breath and wheezing. Patient is afebrile, vital signs are stable. On physical examination he does have wheezing throughout but with good air movement. He was already given 3 albuterol nebulizers and Solu-Medrol. The patient will be given 3 DuoNeb treatments and reassessed. Chest x-ray is negative for any acute abnormalities. CBC is unremarkable. BMP is unremarkable. Troponin is less than 0.02. Patient reassessed after nebulizer treatments and reports complete resolution of symptoms. Lungs are now clear to auscultation. Patient is stable for discharge. We'll refill his inhalers and given a short course of steroids with a Z-Flavio. Instructed to follow-up with his PCP. Counseled smoking cessation. Patient verbalizes understanding and agreement with treatment plan. I discussed the case with my attending physician Dr. Weiner who is aware of the patients history, physical examination findings, and treatment plan. Diagnosis Primary Impression: COPD exacerbation Referrals: Primary Care Physician Patient Instructions: COPD (Chronic Obstructive Pulmonary Disease) (ED), General Instructions Additional Instructions: Take medications as prescribed with food and a full glass of water. Follow-up with your Primary Care Physician. Return to the ED for any acute worsening of symptoms. Med/Other Pt SpecificInfo: Prescription(s) given Scripts Albuterol 18 GM Inh (Ventolin Hfa 18 GM Inh)90 Mcg/Act Aer2 Puff INH Q4-6H PRN ( SHORTNESS OF BREATH) #1 INHALER Ref 1 Prov:Nathaly Weiner DO 05/07/16 Budesonide-Formoterol Inh (Symbicort Inh)160-4.5 Mcg/Act Aero2 Puff INH Q12HR # 1 INHALER Ref 1 Prov:Nathaly Weiner DO 05/07/16 Guaifenesin ER 12 HR (Mucinex ER 12 HR)600 Mg [id number] Mg PO BID 7 Days Ref 0 Prov:Nathaly Weiner DO 05/07/16 Azithromycin (Zithromax Z-Flavio)250 Mg [id number] Mg PO DIRECTED #1 DSPK Ref 0 500 MG (2 tabs) day 1, then 1 tab days 2-5. Prov:Nathaly Weiner DO 05/07/16 Prednisone 20 Mg Tab20 Mg PO BID 5 Days Ref 0 Prov:Nathaly Weiner DO 05/07/16 Disposition: 01 DISCHARGE HOME Condition: Stable Leti Mayorga May 07, 2016 20:06
[2016-05-07] MEDS: RESP: ALBUTEROL 2.5 MG/IPRATROPIUM 0.5 MG NEB (SCH) INH ×2 (20:15→20:16)
--- NOTE | 2016-05-07 20:45 | RADRPT ---
EXAM DATE/TIME: 05/07/2016 20:03 [facility] COMPARISON: CHEST SINGLE AP, April 14, 2016, 23:26. INDICATIONS : Asthma attack tonight. MEDICAL HISTORY : Hypertension. Chronic obstructive pulmonary disease. Asthma. SURGICAL HISTORY : None. ENCOUNTER: Initial ACUITY: 1 day PAIN SCORE: 3/10 LOCATION: Bilateral chest FINDINGS: A single view of the chest demonstrates the lungs to be symmetrically aerated without evidence of mas s, infiltrate or effusion. The cardiomediastinal contours are unremarkable. Osseous structures are intact.CONCLUSION: No evidence of acute cardiopulmonary disease. Miguel Mart MD on May 07, 2016 at 20:42 Board Certified Radiologist. This report was verified electronically.
[2016-05-07 21:40] LABS: AUTOMATED NEUTROPHIL # 2.8 TH/MM3 (1.8-7.7); BASOPHIL % 0.6 % (0.0-2.0); EOSINOPHIL # 0.5 TH/MM3 (0-0.4); HEMATOCRIT 40.9 % (39.0-51.0); HEMO FLAGS DIFF FINAL; LYMPH % 36.7 % (9.0-44.0); LYMPHOCYTE # 2.2 TH/MM3 (1.0-4.8); MEAN CELL VOLUME 90.2 FL (80.0-100.0); MEAN CORPUSCULAR HEMOGLOBIN 30.7 PG (27.0-34.0); MONO % 6.6 % (0.0-8.0); NEUT % 48.1 % (16.0-70.0); PLATELET COUNT 238 TH/MM3 (150-450); RED BLOOD COUNT 4.54 MIL/MM3 (4.50-5.90); RED CELL DISTRIBUTION WIDTH 14.2 % (11.6-17.2); WHITE BLOOD COUNT 5.9 TH/MM3 (4.0-11.0)
[2016-05-07 22:07] LABS: ANION GAP 11 MEQ/L (5-15); BICARBONATE 21.4 MEQ/L (21.0-32.0); BLOOD UREA NITROGEN 10 MG/DL (7-18); CHLORIDE 109 MEQ/L (98-107); GLOMERULAR FILTRATION RATE 102 ML/MIN (>89); POTASSIUM 3.6 MEQ/L (3.5-5.1); SODIUM (NA) 141 MEQ/L (136-145)
[2016-05-07] MEDS ORDERED: MUCI600T PO (22:27)
[2016-05-07] MEDS ORDERED: SYMB160A INH (22:27)
[2016-05-07] MEDS ORDERED: PRED20 PO (22:27)
[2016-05-07] MEDS ORDERED: VENTAER INH (22:27)
[2016-05-07] MEDS ORDERED: ZITHTAB PO (22:27)
[2016-05-07 22:55] VITALS: BP 127/83
== END 2016-05-07 23:18 | disposition home or self-care (01) ==
LOC: NEPA 19:32
DX: J44.1 Chronic obstructive pulmonary disease with (acute) exacerbation (principal); F17.210 Nicotine dependence, cigarettes, uncomplicated; I25.10 Atherosclerotic heart disease of native coronary artery without angina pectoris; I10 Essential (primary) hypertension; R07.9 Chest pain, unspecified; R05 Cough; J45.909 Unspecified asthma, uncomplicated; E78.00 Pure hypercholesterolemia, unspecified; I25.2 Old myocardial infarction
CPT/HCPCS: 71010; 80048; 84484; 85025; 94640; 94664; 96360; 96361; 99285; J7030

== ENCOUNTER 2016-06-12 01:59 | Emergency (ER) | payer OTHER ==
[~2016-06-12] VITALS: Ht 175.3 cm; Wt 75.0 kg
[~2016-06-12 01:59] MED LIST changes: +PRED20 PO; +ZITHTAB PO
[2016-06-12 02:01] VITALS: BP 131/83; PULSE 118; RESP 18; TEMP 99.2; O2SAT 96
--- NOTE | 2016-06-12 02:44 | PD ---
HPI Chief Complaint: Respiratory Distress Time Seen by Provider: 02:03 Travel History International Travel<30 days: No Contact w/Intl Traveler<30days: No Traveled to known affect area: No History of Present Illness HPI The patient is a 51 year old male who presents to the [facility] emergency department with a history of reportedly having abdominal cramping that began on Friday morning. He reports that the pain is been constant. He reports the pain is across the upper abdomen above the umbilicus. He denies ever having a pain like this previously. He reports that he has had 2 watery stools associated with this today. He denies having any vomiting, however he has had nausea. He also reports having a productive cough, however he has a chronic productive cough related to smoking. The patient reports that he developed a COPD exacerbation just prior to arrival. He reports that he ran out of his rescue inhaler 2 days ago. The patient en route to this facility by ambulance services was given Solu-Medrol 125 mg IV, albuterol nebulizer treatments 2. The patient is resting comfortably, O2 saturations of 97% on 2 L on my arrival to the room. The patient reports on review of systems that he has had worsening acid reflux recently. He currently does have symptoms of heartburn as well. He denies having any shortness of breath currently. His main complaint is the abdominal pain. The patient denies any recent fevers, neck pain , urinary symptoms, or neurologic symptoms. [facility] Past Medical History Narrative Medical The patient's past medical history is significant for COPD, hypertension, hyperlipidemia, anxiety disorder, prior history of polysubstance abuse, currently in rehabilitation, history of coronary artery disease. Medical History: Denies Significant Hx Asthma: Yes Autoimmune Disease: No Blood Disorders: No Anxiety: Yes Heart Rhythm Problems: No Cancer: No Cardiac Catheterization: Yes Cardiovascular Problems: Yes High Cholesterol: Yes Chest Pain: Yes Congestive Heart Failure: No COPD: Yes Diabetes: No Diminished Hearing: No Endocrine: No Gastrointestinal Disorders: Yes Genitourinary: No Hypertension: No Immune Disorder: No Implanted Vascular Access Dvce: No Musculoskeletal: No Neurologic: No Psychiatric: No Reproductive: No Respiratory: Yes Immunizations Current: Yes Myocardial Infarction: Yes Sleep Apnea: No Thyroid Disease: No PNEUMOCCOCAL Vaccine (Year): 1 Past Surgical History Narrative Surgical The patient's past surgical history is significant for cardiac catheterization with stent placement. Surgical History: No Previous Surgery AICD: No Arteriovenous Shunt: No Coronary Stent: Yes Insulin Pump: No Joint Replacement: No Pacemaker: No Other Surgery: No Social History Alcohol Use: No Tobacco Use: Yes (6 cigarettes) Substance Use: No Allergies-Medications (Allergen,Severity, Reaction): Coded Allergies: *MDRO Multi-Drug Resistant Organism (Verified Adverse Reaction, Unknown, Cleared, 06/12/16) MRSA (bronch wash) - 09/2011 MRSA PCR Screen negative 12/02/14 and 12/06/14. Cleared per Infection Control. Reported Meds & Prescriptions Reported Meds & Active Scripts Active Flagyl (Metronidazole) 500 Mg Tab 500 Mg PO TID 7 Days Ventolin Hfa 18 GM Inh (Albuterol Sulfate) 90 Mcg/Act Aer 2 Puff INH Q4-6H PRN Ventolin Hfa 18 GM Inh (Albuterol Sulfate) 90 Mcg/Act Aer 2 Puff INH Q4-6H PRN Duoneb (Ipratropium-Albuterol Neb) 0.5-2.5 Mg/3 Ml Neb 1 Ampule NEB Q4HR WHILE AWAKE NEB Symbicort Inh (Budesonide/Formoterol Fumarate) 160-4.5 Mcg/Act Aero 2 Puff INH Q12HR Oxygen tank (Oxygen) 1 Ea Tank 2 Liter SEA.CANGamma Basics CONTINUOUS Oxygen Concentrator Portable Gaseous 2 L/min via Nasal Cannula Continuous For 99 months Hydralazine (Hydralazine HCl) 10 Mg Tab 10 Mg PO Q6H PRN Review of Systems Except as stated in HPI: all other systems reviewed are Neg General / Constitutional: No: Fever Eyes: No: Visual changes HENT: No: Headaches Cardiovascular: Positive: Chest Pain or Discomfort (chest tightness), Dyspnea on exertion (that resolved prior to arrival) Respiratory: Positive: Cough, Shortness of Breath (result prior to arrival with nebulizer treatment), Wheezing Gastrointestinal: Positive: Nausea, Diarrhea, Abdominal Pain, Changes in Bowel Habits, Indigestion, No: Vomiting, Hematemesis, Hematochezia, Constipation, Loss of Appetite Genitourinary: No: Dysuria Musculoskeletal: No: Pain Skin: No Rash Neurologic: No: Weakness Psychiatric: No: Depression Endocrine: No: Polydipsia Hematologic/Lymphatic: No: Easy Bruising Physical Exam Narrative General: The patient is a well-developed well-nourished male in no acute distress. Head and Neck exam: Head is normocephalic atraumatic. Eyes: EOMI, pupils are equal round and reactive to light. Nose: Midline septum with pink mucous membranes Mouth: Dentition unremarkable. Moist mucus membranes. Posterior oropharynx is not erythematous. No tonsillar hypertrophy. Uvula midline. Airway patent. Neck: No palpable lymphadenopathy. No nuchal rigidity. No thyromegaly. Cardiovascular: Sinus tachycardia in the low 100s without murmurs, gallops, or rubs. No pulse deficit to the extremities and simultaneous auscultation and palpation of his radial artery. Lungs: Clear to auscultation bilaterally. No wheezes, rhonchi, or rales. Abdomen: Soft, tenderness on palpation in the midepigastric area, no other tenderness on palpation of the other 4 quadrants of the abdomen. No guarding, rebound, or rigidity. No tenderness on palpation of McBurney's point. Negative Lopez's sign. Extremities: No clubbing, cyanosis, or edema. 2+ pulses in all 4 extremities. No calf tenderness on palpation. Back: No spinous process tenderness to palpation. No costovertebral angle tenderness to palpation. Neurologic Exam: Grossly nonfocal. Skin Exam: No rash noted. Intact skin that is warm and dry. Data Data Last Documented VS Vital Signs Date Time Temp Pulse Resp B/P Pulse Ox O2 Delivery O2 Flow Rate FiO2 06/12/16 02:01 99.2 118 18 131/83 96 Orders Complete Blood Count With Diff (06/12/16 02:31) Comprehensive Metabolic Panel (06/12/16 02:31) C-Reactive Protein (Crp) (06/12/16 02:31) Lipase (06/12/16 02:31) Urinalysis - C+S If Indicated (06/12/16 02:31) Enteric Path (Stool) (06/12/16 02:31) C Diff Toxin Pcr (06/12/16 02:31) Chest, Single Ap (06/12/16 02:31) Iv Access Insert/Monitor (06/12/16 02:31) Ecg Monitoring (06/12/16 02:31) Oximetry (06/12/16 02:31) Stool Wbc (Leukocytes) (06/12/16 02:31) Sodium Chlor 0.9% 1000 Ml Inj (Ns 1000 M (06/12/16 02:45) Ondansetron Inj (Zofran Inj) (06/12/16 02:45) Dicyclomine (Bentyl) (06/12/16 02:45) Pantoprazole Inj (Protonix Inj) (06/12/16 03:15) Ct Abd/Pel W Iv Contrast(Rout) (06/12/16 03:40) Iohexol 350 Inj (Omnipaque 350 Inj) (06/12/16 04:22) Albuterol-Ipratropium Neb (Duoneb Neb) (06/12/16 04:45) Metronidazole (Flagyl) (06/12/16 05:45) Labs Laboratory Tests Test 06/12/16 06/12/16 02:50 04:31 White Blood Count 15.0 TH/MM3 Red Blood Count 4.80 MIL/MM3 Hemoglobin 14.6 GM/DL Hematocrit 42.8 % Mean Corpuscular Volume 89.3 FL Mean Corpuscular Hemoglobin 30.5 PG Mean Corpuscular Hemoglobin 34.2 % Concent Red Cell Distribution Width 13.4 % Platelet Count 242 TH/MM3 Mean Platelet Volume 8.7 FL Neutrophils (%) (Auto) 77.6 % Lymphocytes (%) (Auto) 11.8 % Monocytes (%) (Auto) 7.5 % Eosinophils (%) (Auto) 2.7 % Basophils (%) (Auto) 0.4 % Neutrophils # (Auto) 11.6 TH/MM3 Lymphocytes # (Auto) 1.8 TH/MM3 Monocytes # (Auto) 1.1 TH/MM3 Eosinophils # (Auto) 0.4 TH/MM3 Basophils # (Auto) 0.1 TH/MM3 CBC Comment DIFF FINAL Differential Comment Sodium Level 138 MEQ/L Potassium Level 4.2 MEQ/L Chloride Level 107 MEQ/L Carbon Dioxide Level 20.0 MEQ/L Anion Gap 11 MEQ/L Blood Urea Nitrogen 8 MG/DL Creatinine 1.03 MG/DL Estimat Glomerular Filtration 92 ML/MIN Rate Random Glucose 92 MG/DL Calcium Level 9.3 MG/DL Total Bilirubin 1.8 MG/DL Aspartate Amino Transf 12 U/L (AST/SGOT) Alanine Aminotransferase 17 U/L (ALT/SGPT) Alkaline Phosphatase 74 U/L C-Reactive Protein 13.10 MG/DL Total Protein 8.0 GM/DL Albumin 3.8 GM/DL Lipase 86 U/L Urine Color LIGHT-YELLOW Urine Turbidity CLEAR Urine pH 6.0 Urine Specific [place] 1.013 Urine Protein NEG mg/dL Urine Glucose (UA) NEG mg/dL Urine Ketones 10 mg/dL Urine Occult Blood NEG Urine Nitrite NEG Urine Bilirubin NEG Urine Urobilinogen LESS THAN 2.0 MG/DL Urine Leukocyte Esterase NEG Urine WBC LESS THAN 1 /hpf Urine Mucus FEW /lpf Microscopic Urinalysis Comment CULT NOT INDICATED MDM Medical Decision Making Medical Screen Exam Complete: Yes Emergency Medical Condition: Yes Medical Record Reviewed: Yes Interpretation(s) Last Impressions Abdomen/Pelvis CT 06/12/16339 Signed Impressions: Service Date/Time: Sunday, June 12, 2016 04:06 - CONCLUSION: 1. Small hiatal hernia. 2. No acute inflammatory process. Darrell Vaughan MD Chest X-Ray 06/12/16230 Signed Impressions: Service Date/Time: Sunday, June 12, 2016 02:40 - CONCLUSION: No acute disease. Darrell Vaughan MD Differential Diagnosis Acute pancreatitis, versus biliary colic, versus gastritis, versus acid reflux, versus peptic ulcer disease, versus gastroenteritis, versus C. difficile colitis Narrative Course During the course of the patients emergency department visit, the patients history, examination, and differential diagnosis were reviewed with the patient. The patient had IV access obtained and blood work sent for analysis. The patient's face on a director of food and nutrition with oximetry and blood pressure monitoring. The patient was provided normal saline 1 L IV fluid bolus, Protonix 40 mg IV, Bentyl 20 mg by mouth 1, Zofran 4 mg IV. On reexamination, the patient reported feeling improved. The patient was able to provide a stool sample. The patient was then given Flagyl 500 by mouth 1 due to concern about C. difficile, as he has been on multiple courses of antibiotic for bronchitis The patients laboratory studies were reviewed and remarkable for a white count of 15, hemoglobin 14.6, platelets 242 with 77.6 neutrophils, CMP is remarkable for CO2 of 20, total bilirubin 1.8, AST 12, C-reactive protein 13.10, lipase 86 , urinalysis showed 10 ketones otherwise unremarkable. C. difficile is pending. Radiology studies were reviewed and remarkable for a chest x-ray that shows no acute abnormality. CT scan of the abdomen and pelvis shows a small hiatal hernia, no acute inflammatory process. The patient will be discharged home with a prescription for prednisone for a COPD exacerbation, probably her inhaler, Flagyl for suspected C. difficile diarrhea. The patient is resting comfortably and feels better, is alert and in no distress. The patients results and examination findings were discussed with the patient. The repeat examination is unremarkable and benign. The history, exam, diagnostic testing, and current condition do not suggest any significant pathology to warrant further testing, continued ED treatment, admission, or surgical evaluation at this point. The vital signs have been stable. The patient does not have uncontrollable pain, intractable vomiting, or other significant symptoms. The patient's condition is stable and appropriate for discharge. The patient will pursue further outpatient evaluation with a primary care physician or other designated or consulting physician as indicated in the discharge instructions. The patient expressed understanding and was agreeable with this plan. Diagnosis Primary Impression: Abdominal pain Qualified Code: R10.13 - Epigastric pain Additional Impressions: COPD exacerbation Diarrhea Qualified Code: A09 - Diarrhea of infectious origin Referrals: Primary Care Physician 2 days Patient Instructions: Acute Diarrhea (ED), COPD (Chronic Obstructive Pulmonary Disease) (ED), General Instructions Med/Other Pt SpecificInfo: Prescription(s) given Scripts Metronidazole (Flagyl)500 Mg Ily099 Mg PO TID 7 Days Ref 0 Prov:Lali Jensen MD 06/12/16 Albuterol 18 GM Inh (Ventolin Hfa 18 GM Inh)90 Mcg/Act Aer2 Puff INH Q4-6H PRN ( SHORTNESS OF BREATH) #1 INHALER Ref 0 Prov:Lali Jensen MD 06/12/16 Disposition: 01 DISCHARGE HOME Condition: Stable Lali Jensen MD Jun 12, 2016 02:44
[2016-06-12] MEDS ORDERED: DICYCLOMINE HCL 10 MG CAP PO ONE (02:45)
[2016-06-12] MEDS ORDERED: ONDANSETRON HCL 4 MG/2 ML VIAL IV ONE (02:45)
[2016-06-12] MEDS ORDERED: SODIUM CHLOR 0.9% 1000 ML INJ 1,000 ML IV ONE (02:45)
[2016-06-12 03:01] LABS: AUTOMATED NEUTROPHIL # 11.6 TH/MM3 (1.8-7.7); BASOPHIL # 0.1 TH/MM3 (0-0.2); BASOPHIL % 0.4 % (0.0-2.0); EOSINOPHIL # 0.4 TH/MM3 (0-0.4); EOSINOPHIL % 2.7 % (0.0-4.0); HEMATOCRIT 42.8 % (39.0-51.0); HEMO FLAGS DIFF FINAL; LYMPH % 11.8 % (9.0-44.0); LYMPHOCYTE # 1.8 TH/MM3 (1.0-4.8); MEAN CELL VOLUME 89.3 FL (80.0-100.0); MEAN CORPUSCULAR HEMOGLOBIN 30.5 PG (27.0-34.0); MEAN CORPUSCULAR HGB CONC 34.2 % (32.0-36.0); MONO % 7.5 % (0.0-8.0); NEUT % 77.6 % (16.0-70.0); PLATELET COUNT 242 TH/MM3 (150-450); RED CELL DISTRIBUTION WIDTH 13.4 % (11.6-17.2)
--- NOTE | 2016-06-12 03:04 | RADRPT ---
EXAM DATE/TIME: 06/12/2016 02:40 [facility] COMPARISON: CHEST SINGLE AP, May 07, 2016, 20:03. INDICATIONS : Cough. MEDICAL HISTORY : Hypertension. Chronic obstructive pulmonary disease. Asthma. SURGICAL HISTORY : None. ENCOUNTER: Initial ACUITY: 1 day PAIN SCORE: 7/10 LOCATION: Bilateral chest FINDINGS: A single view of the chest demonstrates the lungs to be symmetrically aerated without evidence of mas s, infiltrate or effusion. The cardiomediastinal contours are unremarkable. Osseous structures are intact. CONCLUSION: No acute disease. Darrell Vaughan MD on June 12, 2016 at 3:02 Board Certified Radiologist. This report was verified electronically.
[2016-06-12] MEDS ORDERED: VENTAER INH (03:07)
[2016-06-12] MEDS ORDERED: PANTOPRAZOLE SODIUM 40 MG VIAL IV PUSH ONE (03:15)
[2016-06-12 03:37] LABS: ALKALINE PHOSPHATASE 74 U/L (45-117); TOTAL BILIRUBIN ADULT 1.8 MG/DL (0.2-1.0)
[2016-06-12 03:38] LABS: ALT (GPT) 17 U/L (12-78); ANION GAP 11 MEQ/L (5-15); AST (GOT) 12 U/L (15-37); BLOOD UREA NITROGEN 8 MG/DL (7-18); CHLORIDE 107 MEQ/L (98-107); GLOMERULAR FILTRATION RATE 92 ML/MIN (>89); POTASSIUM 4.2 MEQ/L (3.5-5.1); SODIUM (NA) 138 MEQ/L (136-145)
[2016-06-12] MEDS ORDERED: IOHEXOL 350 MG/ML 10 ML VIAL (for RAD DIAG) IV ONE (04:22)
[2016-06-12] MEDS ORDERED: RESP: ALBUTEROL 2.5 MG/IPRATROPIUM 0.5 MG NEB (SCH) NEB ONE (04:45)
[2016-06-12 04:52] LABS: BLOOD, URINE NEG (NEG); COMMENT (UR) CULT NOT INDICATED; CULTURE IF INDICATED CULT NOT INDICATED; GLUCOSE,URINE NEG (NEG); KETONE, URINE 10 mg/dL (NEG); MUCUS URINE FEW /lpf (OCC); NITRITE,URINE NEG (NEG); URINE COLOR LIGHT-YELLOW (YELLW/STRAW)
--- NOTE | 2016-06-12 05:20 | RADRPT ---
EXAM DATE/TIME: 06/12/2016 04:06 [facility] COMPARISON: No previous studies available for comparison. INDICATIONS : Diffuse abdominal pain with nausea. IV CONTRAST: 96 cc Omnipaque 350 (iohexol) IV ORAL CONTRAST: No oral contrast ingested. RADIATION DOSE: 9.96 CTDIvol (mGy) MEDICAL HISTORY : Myocardial infarction. Hypertension. Chronic obstructive pulmonary disease. SURGICAL HISTORY : Coronary artery stent. ENCOUNTER: Initial ACUITY: 1 day PAIN SCALE: 7/10 LOCATION: Abdomen. TECHNIQUE: Volumetric scanning of the abdomen and pelvis was performed. Using automated exposure control and ad justment of the mA and/or kV according to patient size, radiation dose was kept as low as reasonably achievable to obtain optimal diagnostic quality images. FINDINGS: LOWER LUNGS: The visualized lower lungs are clear. LIVER: Homogeneous density without lesion. There is no dilation of the biliary tree. No calcified gallston es. SPLEEN: Normal size without lesion. PANCREAS: Within normal limits. KIDNEYS: Normal in size and shape. There is no mass, stone or hydronephrosis. ADRENAL GLANDS: Within normal limits. VASCULAR: There is no aortic aneurysm. BOWEL/MESENTERY: The stomach, small bowel, and colon demonstrate no acute abnormality. There is no free intraperitone al air or fluid. Small hiatal hernia. ABDOMINAL WALL: Within normal limits. RETROPERITONEUM: There is no lymphadenopathy. BLADDER: No wall thickening or mass. REPRODUCTIVE: Within normal limits. INGUINAL: There is no lymphadenopathy or hernia. MUSCULOSKELETAL: Within normal limits for patient age. CONCLUSION: 1. Small hiatal hernia. 2. No acute inflammatory process. Darrell Vaughan MD on June 12, 2016 at 5:15 Board Certified Radiologist. This report was verified electronically.
[2016-06-12] MEDS ORDERED: METR-1 PO (05:35)
[2016-06-12] MEDS ORDERED: metroNIDAZOLE 500 MG TAB PO ONE (05:45)
[2016-06-12 06:44] LABS: C. DIFF EPI 027 PRESUMPTIVE NEGATIVE (NEGATIVE); C. DIFF TOXIN PCR NEGATIVE (NEGATIVE)
--- NOTE | 2016-06-12 11:52 | EKG ---
Date Performed: 06/12/2016 Time Performed: 02:07:22 PTAGE: 51 years EKG: SINUS TACHYCARDIA ABNORMAL RHYTHM ECG PREVIOUS TRACING : 04/14/2016 23.19 DOCTOR: Mike Lr Interpretating Date/Time 06/12/2016 11:50:25
== END 2016-06-12 06:53 | disposition home or self-care (01) ==
LOC: NEPE 01:59
DX: R10.13 Epigastric pain (principal); J44.1 Chronic obstructive pulmonary disease with (acute) exacerbation; R19.7 Diarrhea, unspecified; E78.00 Pure hypercholesterolemia, unspecified; I25.2 Old myocardial infarction
CPT/HCPCS: 71010; 74177; 80053; 81001; 83690; 85025; 86140; 87205; 87493; 87506; 93005; 94664; 96361; 96374; 96375; 99284; C9113; J2405; J7030; Q9967

== ENCOUNTER 2016-06-20 03:04 | Emergency (ER) | payer OTHER ==
[~2016-06-20] VITALS: Ht 177.8 cm; Wt 75.0 kg
[~2016-06-20 03:04] MED LIST changes: -LEVA750T PO; +METR-1 PO; -MUCI600T PO; -PRED10 PO; -PRED20 PO; -ZITHTAB PO
[2016-06-20 03:07] VITALS: BP 120/78; PULSE 92; RESP 24; TEMP 98.3; O2SAT 98
[2016-06-20] MEDS ORDERED: DEXAMETHASONE SOD PHOS 4 MG/ML VIAL IM ONE (03:15)
--- NOTE | 2016-06-20 03:15 | PD ---
HPI Chief Complaint: Respiratory Symptoms Time Seen by Provider: 03:08 Travel History International Travel<30 days: No Contact w/Intl Traveler<30days: No Traveled to known affect area: No History of Present Illness HPI 51-year-old male complains of coughing congestion shortness of breath. Patient has history of asthma. Patient states that he had productive cough the past week. Patient denies any headache. Patient denies chest pain. Patient denies abdominal pain. Patient states that the cough is persistent and nonproductive. Patient used inhaler occasionally for the past few days. PFSH Past Medical History Asthma: Yes Autoimmune Disease: No Blood Disorders: No Anxiety: Yes Heart Rhythm Problems: No Cancer: No Cardiac Catheterization: Yes Cardiovascular Problems: Yes High Cholesterol: Yes Chest Pain: Yes Congestive Heart Failure: No COPD: Yes Diabetes: No Diminished Hearing: No Endocrine: No Gastrointestinal Disorders: No Genitourinary: No Hypertension: Yes Immune Disorder: No Implanted Vascular Access Dvce: No Musculoskeletal: No Neurologic: No Psychiatric: No Reproductive: No Respiratory: Yes Immunizations Current: Yes Myocardial Infarction: Yes Sleep Apnea: No Thyroid Disease: No Tetanus Vaccination: > 5 Years Influenza Vaccination: Yes PNEUMOCCOCAL Vaccine (Year): 1 Past Surgical History AICD: No Arteriovenous Shunt: No Coronary Stent: Yes Insulin Pump: No Joint Replacement: No Pacemaker: No Other Surgery: No Social History Alcohol Use: No Tobacco Use: Yes (6 cigarettes) Substance Use: No Allergies-Medications (Allergen,Severity, Reaction): Coded Allergies: *MDRO Multi-Drug Resistant Organism (Verified Adverse Reaction, Unknown, Cleared, 06/20/16) MRSA (bronch wash) - 09/2011 MRSA PCR Screen negative 12/02/14 and 12/06/14. Cleared per Infection Control. Reported Meds & Prescriptions Reported Meds & Active Scripts Active Ventolin Hfa 18 GM Inh (Albuterol Sulfate) 90 Mcg/Act Aer 2 Puff INH Q4-6H PRN Ventolin Hfa 18 GM Inh (Albuterol Sulfate) 90 Mcg/Act Aer 2 Puff INH Q4-6H PRN Review of Systems General / Constitutional: No: Fever Eyes: No: Visual changes HENT: No: Headaches Cardiovascular: No: Chest Pain or Discomfort Respiratory: Positive: Cough, Shortness of Breath, Wheezing Gastrointestinal: No: Abdominal Pain Genitourinary: No: Dysuria Musculoskeletal: No: Pain Skin: No Rash Neurologic: No: Weakness Psychiatric: No: Depression Endocrine: No: Polydipsia Hematologic/Lymphatic: No: Easy Bruising Physical Exam Narrative GENERAL: Well-nourished, well-developed patient. SKIN: Focused skin assessment warm/dry. HEAD: Normocephalic. EYES: No scleral icterus. No injection or drainage. NECK: Supple, trachea midline. No JVD or lymphadenopathy. CARDIOVASCULAR: Regular rate and rhythm without murmurs, gallops, or rubs. RESPIRATORY: Breath sounds equal bilaterally. No accessory muscle use. Patient has moderate expiratory wheezes bilaterally. Patient has few rhonchi at the bases. GASTROINTESTINAL: Abdomen soft, non-tender, nondistended. MUSCULOSKELETAL: No cyanosis, or edema. BACK: Nontender without obvious deformity. No CVA tenderness. Data Data Last Documented VS Vital Signs Date Time Temp Pulse Resp B/P Pulse Ox O2 Delivery O2 Flow Rate FiO2 06/20/16 03:26 98 Nasal Cannula 2.00 06/20/16 03:09 92 24 06/20/16 03:07 98.3 120/78 Orders Chest, Single Ap (06/20/16 03:08) Albuterol-Ipratropium Neb (Duoneb Neb) (06/20/16 03:15) Dexamethasone Inj (Decadron Inj) (06/20/16 03:15) MDM Medical Decision Making Medical Screen Exam Complete: Yes Emergency Medical Condition: Yes Interpretation(s) Last Impressions Chest X-Ray 06/20/16 0308 Signed Impressions: Service Date/Time: June 03:06 - CONCLUSION: Normal examination. Mike Bermudez MD Differential Diagnosis Differential diagnosis including URI, bronchitis, pneumonia, acute exacerbation of asthma Narrative Course 51-year-old male with coughing congestion wheezing and shortness of breath. History of asthma. Albuterol with Atrovent unit dose treatment 3. Decadron 8 mg IM. 4:07 AM. Reexamination patient's feeling much better. Diagnosis Primary Impression: Acute asthma exacerbation Qualified Code: J45.31 - Mild persistent asthma with acute exacerbation Patient Instructions: General Instructions Additional Instructions: Use albuterol inhaler as directed. Z-Flavio and prednisone is directed. Follow- up with personal physician. Return if persistent problem or worse. Med/Other Pt SpecificInfo: Prescription(s) given Scripts Azithromycin (Zithromax Z-Flavio)250 Mg [id number] Mg PO DIRECTED #1 DSPK 500 MG (2 tabs) day 1, then 1 tab days 2-5. Prov:Eloy Tolliver MD 06/20/16 Prednisone 20 Mg Tab20 Mg PO BID #10 TAB Ref 0 Prov:Eloy Tolliver MD 06/20/16 Budesonide-Formoterol Inh (Symbicort Inh)160-4.5 Mcg/Act Aero1 Puff INH Q12HR # 1 INHALER Ref 0 Prov:Eloy Tolliver MD 06/20/16 Disposition: 01 DISCHARGE HOME Condition: Stable Eloy Tolliver MD Jun 20, 2016 03:14
[2016-06-20 03:26] VITALS: O2SAT 98
[2016-06-20] MEDS: RESP: ALBUTEROL 2.5 MG/IPRATROPIUM 0.5 MG NEB (SCH) INH (03:26)
--- NOTE | 2016-06-20 03:34 | RADRPT ---
EXAM DATE/TIME: 06/20/2016 03:06 [facility] COMPARISON: CHEST SINGLE AP, June 12, 2016, 2:40. INDICATIONS : Shortness of breath and chest pain. MEDICAL HISTORY : Asthma. SURGICAL HISTORY : None. ENCOUNTER: Initial ACUITY: 1 day PAIN SCORE: 5/10 LOCATION: Bilateral chest FINDINGS: A single view of the chest demonstrates the lungs to be symmetrically aerated without evidence of mas s, infiltrate or effusion. The cardiomediastinal contours are unremarkable. Osseous structures are intact. CONCLUSION: Normal examination. Mike Bermudez MD on June 20, 2016 at 3:33 Board Certified Radiologist. This report was verified electronically.
[2016-06-20] MEDS ORDERED: SYMB160A INH (04:08)
[2016-06-20] MEDS ORDERED: PRED20 PO (04:08)
[2016-06-20] MEDS ORDERED: ZITHTAB PO (04:09)
[2016-06-20 05:14] VITALS: BP 121/68
== END 2016-06-20 05:18 | disposition home or self-care (01) ==
LOC: NEPE 03:04
DX: J45.901 Unspecified asthma with (acute) exacerbation (principal); I10 Essential (primary) hypertension; J44.9 Chronic obstructive pulmonary disease, unspecified; I25.2 Old myocardial infarction; Z72.0 Tobacco use
CPT/HCPCS: 71010; 94640; 94664; 96372; 99283; J1100